=== PATIENT | male | born 1965 | race Caucasian/White ===

== ENCOUNTER 2021-07-11 08:05 | Outpatient (REF) | payer OTHER, SELFPAY ==
[2021-07-11 08:40] LABS: MANUAL DIFF FLAG NO
[2021-07-11 09:05] LABS: Appearance Urine CLEAR; Color Urine YELLOW; Glucose Urine UA NEG (NEG); Leukocyte Esterase Urine NEG (NEG); Nitrite Urine NEG (NEG); Specific Gravity - Urine 1.025 (1.005-1.025); Urine Blood NEG (NEG); Urine Ketones NEG (NEG); Urine Protein NEG (NEG-TRACE)
[2021-07-11 10:09] LABS: Basophils Absolute Auto 0.1 X10*3/uL (0.0-0.2); Basophils Percent Auto 0.8 % (0-2); Eosinophils Absolute Auto 0.5 X10*3/uL (0.0-0.4); Eosinophils Percent Auto 4.7 % (0-4); Hemoglobin 14.4 g/dl (14.0-18.0); Imm Gran Abs Auto 0.04 X10*3/uL (0.00-0.03); Imm Gran Pct Auto 0.4 % (0.0-0.4); Lymphocytes Percent Auto 19.3 % (20-40); Mean Corpuscular HGB Conc 31.3 g/dl (31.0-36.0); Mean Corpuscular Hemoglobin 27.9 pg (27.0-33.0); Mean Corpuscular Volume 89.1 fL (80.0-98.0); Mean Platelet Volume 11.6 fL (9.4-12.4); Monocytes Absolute Auto 1.3 X10*3/uL (0.1-1.2); Monocytes Percent Auto 12.7 % (2-11); Neutrophils Absolute Auto 6.3 x10*3/uL (2.0-8.3); Neutrophils Percent Auto 62.1 % (45-73); Platelet Count 246 X10*3/uL (160-400); Red Blood Count 5.16 X10*6/uL (4.60-5.80); White Blood Count 10.2 X10*3/uL (4.8-10.8)
[2021-07-11 10:23] LABS: Alanine Aminotransferase 20 U/L (0-40); Albumin Level 4.1 g/dL (3.5-5.0); Alkaline Phosphatase 65 U/L (39-117); Anion Gap 13 (12-20); Aspartate Amino Transferase 16 U/L (5-37); Bilirubin Total 0.5 mg/dL (0.0-1.0); Blood Urea Nitrogen 21 mg/dL (9-16); Calcium 10.1 mg/dL (8.4-10.2); Carbon Dioxide 31 mmol/L (22-29); Chloride 100 mmol/L (96-108); Cholesterol 224 mg/dL; Estimated Glomerular Filt Rate > 60; Glucose Fasting 94 mg/dL (60-99); HDL Cholesterol 43 mg/dL; LDL Cholesterol Calculated 164 mg/dl; Potassium 4.8 mmol/L (3.3-5.1); Sodium 139 mmol/L (135-145); Total Protein 6.9 g/dL (6.5-8.0); Triglycerides 88 mg/dL
[2021-07-11 10:44] LABS: Prostate Specific Antigen 2.45 ng/mL (<0.05-4.0)
== END 2021-07-11 08:06 | disposition home or self-care (01) ==
LOC: HO.LAB 08:05
PROVIDERS: PCP Internal Medicine; Visit Provider Internal Medicine
DX: E78.00 Pure hypercholesterolemia, unspecified (principal); K21.9 Gastro-esophageal reflux disease without esophagitis; M17.10 Unilateral primary osteoarthritis, unspecified knee; R35.1 Nocturia; Z12.5 Encounter for screening for malignant neoplasm of prostate
CPT/HCPCS: 36415; 80053; 80061; 81003; 84153; 85025

== ENCOUNTER → 2021-07-17 15:05 | Outpatient (BNVA) | payer OTHER, SELFPAY | PROVIDERS: PCP Internal Medicine; Referring Provider Internal Medicine; Visit Provider Surgery | DX: K43.9 Ventral hernia without obstruction or gangrene (principal); E66.01 Morbid (severe) obesity due to excess calories; Z68.43 Body mass index [BMI] 50.0-59.9, adult | CPT/HCPCS: 99202 ==

== ENCOUNTER 2021-09-14 08:40 | Outpatient (REF) | payer OTHER, SELFPAY ==
[2021-09-14 10:16] LABS: Cholesterol 211 mg/dL; HDL Cholesterol 40 mg/dL; LDL Cholesterol Calculated 153 mg/dl; Triglycerides 94 mg/dL
== END 2021-09-14 08:41 | disposition home or self-care (01) ==
LOC: HO.LAB 08:40
PROVIDERS: PCP Internal Medicine; Visit Provider Internal Medicine
DX: E78.00 Pure hypercholesterolemia, unspecified (principal)
CPT/HCPCS: 36415; 80061

== ENCOUNTER → 2021-10-04 12:49 | Outpatient (REF) | payer OTHER, SELFPAY | LOC: HO.SL 12:49 | PROVIDERS: PCP Internal Medicine; Visit Provider Internal Medicine | DX: G47.33 Obstructive sleep apnea (adult) (pediatric) (principal); R06.83 Snoring; R53.83 Other fatigue; E66.3 Overweight | CPT/HCPCS: 95806 ==

== ENCOUNTER → 2021-12-27 20:17 | Outpatient (REF) | payer OTHER, SELFPAY | LOC: HO.SL 20:17 | PROVIDERS: PCP Internal Medicine; Visit Provider Internal Medicine | DX: G47.33 Obstructive sleep apnea (adult) (pediatric) (principal); G47.61 Periodic limb movement disorder | CPT/HCPCS: 95811 ==

== ENCOUNTER → 2022-02-06 14:12 | Outpatient (BNVA) | payer OTHER, SELFPAY | PROVIDERS: PCP Internal Medicine; Visit Provider Internal Medicine | DX: G47.33 Obstructive sleep apnea (adult) (pediatric) (principal); K43.9 Ventral hernia without obstruction or gangrene; G47.34 Idiopathic sleep related nonobstructive alveolar hypoventilation; G47.61 Periodic limb movement disorder; E66.01 Morbid (severe) obesity due to excess calories; Z68.43 Body mass index [BMI] 50.0-59.9, adult | CPT/HCPCS: 99202 ==

== ENCOUNTER 2022-04-17 15:23 | Emergency (ER) | payer OTHER, SELFPAY ==
--- NOTE | ~2022-04-17 | CT_ITS ---
EXAMINATION: CT ABDOMEN AND PELVIS WITHOUT CONTRAST CLINICAL INFORMATION: Severe left flank pain COMPARISON: CT abdomen pelvis 06/06/2018 TECHNIQUE: Multidetector volumetric imaging was performed from the superior aspect of the liver through the pubic symphysis. Sagittal and coronal reformatted images were obtained on the technologist's workstation. This CT examination was performed using dose optimization techniques as appropriate, variously including the following: *Automated exposure control *Adjustment of mA and/or kV according to patient size (this includes techniques or standardized protocols for targeted exams where dose is matched to indication/reason for exam; i.e. extremities or head) *Use of iterative reconstruction technique DLP: 1974 mGy-cm FINDINGS: LUNG BASES: Visualized lung bases are clear. Mild LAD coronary artery vascular calcifications. LIVER, GALLBLADDER, AND BILIARY TREE: Normal hepatic size. No morphologic features of advanced cirrhosis. No liver lesion or biliary ductal dilation. The gallbladder is unremarkable with no evidence of radiopaque gallstones, gallbladder wall thickening, or obvious pericholecystic inflammatory changes. PANCREAS: Unremarkable. SPLEEN: Unremarkable. ADRENAL GLANDS: Unremarkable. KIDNEYS AND URETERS: Small 3 mm left proximal ureteral stone with minimal hydroureteronephrosis. There are several additional small nonobstructing left renal calculi, largest 3 mm in size. No right renal calculi. No renal lesions are hernia. Stranding. BLADDER: Unremarkable. GASTROINTESTINAL TRACT: No dilated bowel loops. No bowel wall thickening. Normal appendix. No ascites or free air. ABDOMINAL WALL: Fat-containing supraumbilical and umbilical abdominal wall hernias. LYMPH NODES: Borderline to mildly enlarged portacaval lymph node measuring 1.1 cm in short axis, nonspecific finding and unchanged. No other lymphadenopathy by size criteria. VASCULAR: Normal caliber abdominal aorta. Minimal scattered vascular calcifications. PELVIC VISCERA: Unremarkable. OSSEOUS STRUCTURES: No acute fracture or suspicious osseous lesion. Diffuse moderate multilevel spondylosis of the visualized thoracolumbar spine. CT/CT abdomen pelvis wo IV con IMPRESSION: 1. 3 mm left proximal ureteral stone with minimal left hydroureteronephrosis. 2. Several additional small nonobstructing left renal calculi.
[2022-04-17 15:39] VITALS: BP 142/82; PULSE 78; RESP 22; TEMP 36.1; O2SAT 96; BMI 55.9
--- NOTE | 2022-04-17 15:39 | ED.ABDPAIN ---
HPI - Abdominal Pain General Chief Complaint: Abdominal Pain <JAKY Reyna Last Filed: 04/17/22 15:41> Stated Complaint: Kidney Stone <JAKY Reyna Last Filed: 04/17/22 15:41> Time Seen by Provider: 04/17/22 17:31 <JAKY Reyna Last Filed: 04/17/22 15:41> Source: patient <JAKY French Last Filed: 04/18/22 08:37> Mode of arrival: ambulatory <JAKY French Last Filed: 04/18/22 08:37> Limitations: no limitations <JAKY French Last Filed: 04/18/22 08:37> History of Present Illness HPI narrative: Patient is a 56 year old assigned male at with a history of kidney stones presenting to the emergency department today with left sided flank pain. Patient states that starting a few hours ago he began to have left sided flank pain. Patient denies any dizziness, lightheadedness, nausea, vomiting, fever, chills, blurry vision, double vision, loss of vision, chest pain, difficulty breathing, shortness of breath, back pain, night sweats, pain with urination, increased urinary frequency, increased urinary urgency, blood in his urine or stool, syncope or a near syncopal episode, recent trauma or falls, bowel incontinence, bladder incontinence, bowel retention, bladder retention, or any other complaints at this time. <JAKY French - Last Filed: 04/18/22 08:37> MD elicited complaint: flank pain <JAKY French Last Filed: 04/18/22 08:37> Pertinent past history: kidney stones <JAKY French Last Filed: 04/18/22 08:37> Onset (ago): hour(s) <JAKY French Last Filed: 04/18/22 08:37> Pain Consistency: constant <JAKY French Last Filed: 04/18/22 08:37> Location: L flank <JAKY French Last Filed: 04/18/22 08:37> Severity: mild <JAKY French Last Filed: 04/18/22 08:37> Pain scale (0-10): 4 <JAKY French Last Filed: 04/18/22 08:37> Quality: dull <JAKY French Last Filed: 04/18/22 08:37> Radiation: none <JAKY French Last Filed: 04/18/22 08:37> Exacerbating factors: nothing <JAKY French Last Filed: 04/18/22 08:37> Relieving factors: nothing <JAKY French Last Filed: 04/18/22 08:37> Associated symptoms: denies other symptoms <JAKY French Last Filed: 04/18/22 08:37> Related Data Home Medications: Home Medications Medication Instructions Recorded Confirmed sertraline 50 mg tablet 75 mg PO DAILY 07/17/21 10/25/21 trazodone 50 mg tablet 75 - 100 mg PO BEDTIME 07/17/21 10/25/21 losartan 25 mg tablet 25 mg PO DAILY 02/06/22 simvastatin 10 mg tablet 10 mg PO DAILY 02/06/22 Previous Rx's Medication Instructions Recorded prednisone 20 mg tablet 20 mg PO DAILY 7 days #7 tabs 04/17/22 tamsulosin 0.4 mg capsule (Flomax) 0.4 mg PO DAILY 7 days #7 caps 04/17/22 <JAKY Reyna Last Filed: 04/17/22 15:41> Allergies/Adverse Reactions: Allergies Allergy/AdvReac Type Severity Reaction Status Date / Time No Known Allergies Allergy Verified 02/06/22 14:52 [No Known Allergies*] <JAKY Reyna Last Filed: 04/17/22 15:41> Review of Systems Constitutional: Reports no additional constitutional complaints, Denies chills, Denies fever(s) and Denies night sweats <JAKY French Last Filed: 04/18/22 08:37> Eyes: Reports no additional eye complaints, Denies blurry vision, Denies change in vision, Denies diplopia, Denies eye discharge, Denies loss of vision and Denies eye pain <JAKY French Last Filed: 04/18/22 08:37> Denies dizziness <JAKY French Last Filed: 04/18/22 08:37> Cardiovascular: Reports no additional cardiovascular complaints, Denies chest pain, Denies lightheadedness, Denies Loss of Consciousness and Denies dyspnea <JAKY French - Last Filed: 04/18/22 08:37> Respiratory: Reports no additional respiratory complaints and Denies dyspnea <JAKY French Last Filed: 04/18/22 08:37> Gastrointestinal: Reports no additional gastrointestinal complaints, Denies abdominal pain, Denies melena, Denies hematochezia, Denies change in bowel habits and Denies change in stool character <JAKY French - Last Filed: 04/18/22 08:37> Genitourinary: Reports no additional male genitourinary complaints, Denies hematuria, Denies oliguria, Denies difficulty urinating, Denies dysuria, Reports flank pain, Denies urinary frequency, Denies urinary hesitancy, Denies urinary incontinence and Denies urinary urgency <JAKY French Last Filed: 04/18/22 08:37> Musculoskeletal: Reports no additional musculoskeletal complaints, Denies numbness and Denies tingling <JAKY French Last Filed: 04/18/22 08:37> Denies dizziness, Denies loss of vision, Denies numbness and Denies tingling <JAKY French Last Filed: 04/18/22 08:37> Psychiatric: Reports no additional psychiatric complaints <JAKY French Last Filed: 04/18/22 08:37> Endocrine: Reports no additional endocrine complaints <JAKY French Last Filed: 04/18/22 08:37> Hematologic/Lymphatic: Reports no additional hematologic/lymphatic complaints <JAKY French Last Filed: 04/18/22 08:37> Allergic/Immunologic: Reports no additional allergic/immunologic complaints <JAKY French Last Filed: 04/18/22 08:37> PMFSH Past Medical History Attestation statement: The following information was validated with the patient. <JAKY French Last Filed: 04/18/22 08:37> Source: old records reviewed and nursing notes reviewed <JAYK French Last Filed: 04/18/22 08:37> Medical History: Medical History Arthritis of knee Depression Elevated cholesterol History of kidney stones Morbid obesity Morbid obesity with BMI of 50.0-59.9, adult Nocturnal hypoxemia STACY (obstructive sleep apnea) STACY (obstructive sleep apnea) Periodic limb movements of sleep PTSD (post-traumatic stress disorder) Seasonal allergic rhinitis Snores Supraumbilical hernia <JAKY Reyna - Last Filed: 04/17/22 15:41> Surgical History: Surgical History History of cystoscopy History of lithotripsy History of umbilical hernia repair <JAKY Reyna - Last Filed: 04/17/22 15:41> Family History Family History: Family History Mother Cancer of kidney <JAKY Reyna - Last Filed: 04/17/22 15:41> Social History Social History: Social History Patient Tobacco Use Status: Former Tobacco user Advance Directives: No Advance Directives Information Provided: Yes <JAKY Ryena - Last Filed: 04/17/22 15:41> Physical Exam ED Vital Signs: Vital Signs - 24 hr 04/17/22 15:39 Temperature 96.9 F Pulse Rate 78 Respiratory Rate 22 H Blood Pressure 142/82 H Pulse Oximetry 96 Oxygen Delivery Method Room Air BMI result Body Mass Index 55.9 <JAKY Reyna - Last Filed: 04/17/22 15:41> Vital Signs - 24 hr 04/17/22 15:39 Temperature 96.9 F Pulse Rate 78 Respiratory Rate 22 H Blood Pressure 142/82 H Pulse Oximetry 96 Oxygen Delivery Method Room Air BMI result Body Mass Index 55.9 <JAKY French - Last Filed: 04/18/22 08:37> Const General: cooperative, no acute distress, alert and awake <JAKY French - Last Filed: 04/18/22 08:37> Nutritional Appearance: well nourished <JAKY French - Last Filed: 04/18/22 08:37> Orientation/consciousness: patient oriented x3 <Tatum Maharajlance [place] - Last Filed: 04/18/22 08:37> Limitations: no limitations <Tatum MaharajJAKY lucas - Last Filed: 04/18/22 08:37> HENMT Head: Yes normal to inspection and Yes atraumatic <Tatum MaharajJAKY lucas - Last Filed: 04/18/22 08:37> Ears: hearing grossly normal bilaterally and external ears normal <Tatum Maharajlance [place] - Last Filed: 04/18/22 08:37> General nose exam: Normal external nose present, no nasal discharge noted and no epistaxis <Tatumac Maharajlance DE - Last Filed: 04/18/22 08:37> Face and sinus: Yes normal facial exam, No abrasion and No laceration <Tatum Maharajlance [place] - Last Filed: 04/18/22 08:37> Mouth: Normal oral and palatal mucosa present, no drooling and no muffled voice <JAKY French - Last Filed: 04/18/22 08:37> Eyes General: appearance normal, both eyes and all related structures <Tatum Maharajlance DE - Last Filed: 04/18/22 08:37> Periorbital: periorbital findings normal <Tatum MaharajJAKY lucas - Last Filed: 04/18/22 08:37> Eyelids: Yes eyelids normal <Tatum aMharajlance DE - Last Filed: 04/18/22 08:37> Conjunctivae: conjunctivae normal <Tatumac MaharajJAKY lucas - Last Filed: 04/18/22 08:37> Pupils: Equal, round and reactive pupils present <Tatum Maharajlance DE - Last Filed: 04/18/22 08:37> EOM: EOMs intact bilaterally <Tatumca MaharajJAKY lucas - Last Filed: 04/18/22 08:37> Neck Neck: Yes normal visual inspection, Yes full ROM and Yes no lymphadenopathy <Tatum JAKY Miguel - Last Filed: 04/18/22 08:37> Chest Chest palpation & inspection: normal inspection of the chest <JAKY French - Last Filed: 04/18/22 08:37> Resp Effort & Inspection: normal respiratory effort and able to speak in complete sentences <Tatum Miguel PA - Last Filed: 04/18/22 08:37> Auscultation: clear to auscultation bilaterally <Tatum Miguel DE - Last Filed: 04/18/22 08:37> Cardio Rate: regular rate <Tatum Miguel DE - Last Filed: 04/18/22 08:37> Rhythm: regular rhythm <Tatum Miguel DE - Last Filed: 04/18/22 08:37> GI Inspection: Yes normal to inspection <Tatum Miguel DE - Last Filed: 04/18/22 08:37> Palpation (GI): Soft to palpation, not firm, nontender, no guarding and not rigid <Tatum Miguel DE - Last Filed: 04/18/22 08:37> General: Yes no CVA tenderness <Tatum Miguel DE - Last Filed: 04/18/22 08:37> Back/Spine/Pelvis Back: no CVA tenderness <Tatum Miguel DE - Last Filed: 04/18/22 08:37> Neuro General: patient oriented x3 and moves all extremities <Tatum Migeul DE - Last Filed: 04/18/22 08:37> Cranial nerves: Yes Equal, round and reactive pupils present <Tatum Miguel DE - Last Filed: 04/18/22 08:37> Cognition (Neuro): normal cognition <Tatum Miguel DE - Last Filed: 04/18/22 08:37> Motor exam (neuro): 5/5 motor strength present throughout <Tatum Miguel DE - Last Filed: 04/18/22 08:37> Sensory Exam: Normal double simultaneous stimulation for sensation <Tatum Miguel DE - Last Filed: 04/18/22 08:37> Coordination: [id number] test normal <Tatum Miguel PA - Last Filed: 04/18/22 08:37> Extrem General: Yes normal to inspection, Yes full ROM and Yes capillary refill normal <Tatum Miguel DE - Last Filed: 04/18/22 08:37> Psych Appearance: grossly normal <Tatum MiguelJAKY - Last Filed: 04/18/22 08:37> Mental Status: mental status grossly normal <Tatum Miguel PA - Last Filed: 04/18/22 08:37> Affect: normal affect <JAKY French Last Filed: 04/18/22 08:37> Attitude: cooperative <JAKY French Last Filed: 04/18/22 08:37> Thought process: Normal thought process present <JAKY French Last Filed: 04/18/22 08:37> Thought content: Normal thought content present <JAKY French Last Filed: 04/18/22 08:37> Insight: Good insight present (Psych) <JAKY French Last Filed: 04/18/22 08:37> Course Course Course Narrative: RME - 56 y/o male with history of recurrent kidney stones requiring multiple procedures in the past who presents to the ER for evaluation of acute onset of severe left sided flank pain x1 hour along with nausea. Labs, CT scan ordered along with PO motrin and zofran for now. <JAKY Reyna - Last Filed: 04/17/22 15:41> Medical Decision Making Medical Decision Making MDM Narrative: Patient is a 56 year old assigned male at with a history of kidney stones presenting to the emergency department today with left flank pain. Patient's physical exam was unremarkable. Patient's blood work showed a slightly elevated WBC count of 12.8 which I attribute to a stress reaction. Patient's abdominal/pelvis CT showed a 3mm left proximal ureteral stone with minimal left hydroureteronephrosis. I explained my physical exam findings as well as all test results to the patient. I answered all questions asked by the patient. Patient received IM Toradol which he stated helped his symptoms significantly. I stressed the importance of the patient taking his medication as prescribed. I stressed the importance of the patient following up with his primary care provider and a urologist. I stressed the importance of the patient returning to the emergency department immediately if his symptoms were to worsen or if he were to develop any dizziness, shortness of breath, difficulty breathing, chest pain, blurry vision, loss of vision, nausea, vomiting, abdominal pain, fever, chills, back pain, or any other complaints. Patient verbalized agreement and understanding with this treatment plan and discharge. <JAKY French Last Filed: 04/18/22 08:37> Differential Diagnosis Differential Diagnoses: The differential diagnosis associated with the presentation includes <JAKY French - Last Filed: 04/18/22 08:37> kidney stones, flank pain <JAKY French - Last Filed: 04/18/22 08:37> Lab Data MDM Lab Attestation statement: I reviewed the patient's lab results. <JAKY French - Last Filed: 04/18/22 08:37> Result Diagrams: 04/17/22 15:45 04/17/22 15:45 <JAKY Reyna - Last Filed: 04/17/22 15:41> Labs: Lab Results 04/17/22 04/17/22 04/17/22 Range/Units 15:45 15:45 15:45 WBC 12.8 H (4.8-10.8) X10*3/uL RBC 5.10 (4.60-5.80) X10*6/uL Hgb 14.8 (14.0-18.0) g/dl Hct 45.0 (42.0-52.0) % MCV 88.2 (80.0-98.0) fL MCH 29.0 (27.0-33.0) pg MCHC 32.9 (31.0-36.0) g/dl RDW 13.8 (11.0-16.0) % Plt Count 277 (160-400) X10*3/uL MPV 10.3 (9.4-12.4) fL Immature Gran % (Auto) 0.4 (0.0-0.4) % Neut % (Auto) 74.2 H (45-73) % Lymph % (Auto) 14.2 L (20-40) % [place] % (Auto) 9.1 (2-11) % Eos % (Auto) 1.4 (0-4) % Baso % (Auto) 0.7 (0-2) % Lymph # (Auto) 1.8 (1.2-4.9) X10*3/uL [place] # (Auto) 1.2 (0.1-1.2) X10*3/uL Eos # (Auto) 0.2 (0.0-0.4) X10*3/uL Baso # (Auto) 0.1 (0.0-0.2) X10*3/uL Abs Immat Gran (auto) 0.05 H (0.00-0.03) X10*3/uL Absolute Neuts (auto) 9.5 H (2.0-8.3) x10*3/uL Absolute Nucleated RBC 0.000 (0.0-0.012) X10*3/uL Nucleated RBC % (auto) 0.0 (0.0-0.2) /100WBC Sodium 138 (135-145) mmol/L Potassium 3.8 D (3.3-5.1) mmol/L Chloride 104 (96-108) mmol/L Carbon Dioxide 23 (22-29) mmol/L Anion Gap 15 (12-20) BUN 17 H (9-16) mg/dL Creatinine 1.31 (0.5-1.4) mg/dL Estim Creat Clear Calc 104.4 Estimated GFR 57 Random Glucose 129 H (60-115) mg/dL Calcium 9.4 D (8.4-10.2) mg/dL Magnesium 1.9 (1.6-2.6) mg/dL Total Bilirubin 0.7 (0.0-1.0) mg/dL Direct Bilirubin 0.3 (0.0-0.5) mg/dL AST 19 (5-37) U/L ALT 19 (0-40) U/L Alkaline Phosphatase 63 (39-117) U/L Total Protein 7.2 (6.5-8.0) g/dL Albumin 4.4 (3.5-5.0) g/dL COVID-19 (SHARAN) Negative (Negative) COVID-19 Clin Com See Note <JAKY Reyna - Last Filed: 04/17/22 15:41> Lab Results 04/17/22 04/17/22 04/17/22 Range/Units 15:45 15:45 15:45 WBC 12.8 H (4.8-10.8) X10*3/uL RBC 5.10 (4.60-5.80) X10*6/uL Hgb 14.8 (14.0-18.0) g/dl Hct 45.0 (42.0-52.0) % MCV 88.2 (80.0-98.0) fL MCH 29.0 (27.0-33.0) pg MCHC 32.9 (31.0-36.0) g/dl RDW 13.8 (11.0-16.0) % Plt Count 277 (160-400) X10*3/uL MPV 10.3 (9.4-12.4) fL Immature Gran % (Auto) 0.4 (0.0-0.4) % Neut % (Auto) 74.2 H (45-73) % Lymph % (Auto) 14.2 L (20-40) % [place] % (Auto) 9.1 (2-11) % Eos % (Auto) 1.4 (0-4) % Baso % (Auto) 0.7 (0-2) % Lymph # (Auto) 1.8 (1.2-4.9) X10*3/uL [place] # (Auto) 1.2 (0.1-1.2) X10*3/uL Eos # (Auto) 0.2 (0.0-0.4) X10*3/uL Baso # (Auto) 0.1 (0.0-0.2) X10*3/uL Abs Immat Gran (auto) 0.05 H (0.00-0.03) X10*3/uL Absolute Neuts (auto) 9.5 H (2.0-8.3) x10*3/uL Absolute Nucleated RBC 0.000 (0.0-0.012) X10*3/uL Nucleated RBC % (auto) 0.0 (0.0-0.2) /100WBC Sodium 138 (135-145) mmol/L Potassium 3.8 D (3.3-5.1) mmol/L Chloride 104 (96-108) mmol/L Carbon Dioxide 23 (22-29) mmol/L Anion Gap 15 (12-20) BUN 17 H (9-16) mg/dL Creatinine 1.31 (0.5-1.4) mg/dL Estim Creat Clear Calc 104.4 Estimated GFR 57 Random Glucose 129 H (60-115) mg/dL Calcium 9.4 D (8.4-10.2) mg/dL Magnesium 1.9 (1.6-2.6) mg/dL Total Bilirubin 0.7 (0.0-1.0) mg/dL Direct Bilirubin 0.3 (0.0-0.5) mg/dL AST 19 (5-37) U/L ALT 19 (0-40) U/L Alkaline Phosphatase 63 (39-117) U/L Total Protein 7.2 (6.5-8.0) g/dL Albumin 4.4 (3.5-5.0) g/dL COVID-19 (SHARAN) Negative (Negative) COVID-19 Clin Com See Note <JAKY French - Last Filed: 04/18/22 08:37> Radiology Impression Discussion of test interpretation with radiology: I have reviewed the radiologist's reading. <JAKY French - Last Filed: 04/18/22 08:37> Radiologist Impression: My interpretation is in agreement with the radiologist's impression of this imaging study. EXAMINATION: CT ABDOMEN AND PELVIS WITHOUT CONTRAST? CLINICAL INFORMATION: Severe left flank pain? COMPARISON: CT abdomen pelvis 06/06/2018? TECHNIQUE: Multidetector volumetric imaging was performed from the superior aspect of the liver through the pubic symphysis. Sagittal and coronal reformatted images were obtained on the technologist's workstation.? This CT examination was performed using dose optimization techniques as appropriate, variously including the following: *Automated exposure control *Adjustment of mA and/or kV according to patient size (this includes techniques or standardized protocols for targeted exams where dose is matched to indication/reason for exam; i.e. extremities or head) *Use of iterative reconstruction technique DLP: 1974 mGy-cm FINDINGS: LUNG BASES: Visualized lung bases are clear. Mild LAD coronary artery vascular calcifications.? LIVER, GALLBLADDER, AND BILIARY TREE: Normal hepatic size. No morphologic features of advanced cirrhosis. No liver lesion or biliary ductal dilation. The gallbladder is unremarkable with no evidence of radiopaque gallstones, gallbladder wall thickening, or obvious pericholecystic inflammatory changes.? PANCREAS: Unremarkable.? SPLEEN: Unremarkable.? ADRENAL GLANDS: Unremarkable.? KIDNEYS AND URETERS: Small 3 mm left proximal ureteral stone with minimal hydroureteronephrosis. There are several additional small nonobstructing left renal calculi, largest 3 mm in size. No right renal calculi. No renal lesions are hernia. Stranding. BLADDER: Unremarkable.? GASTROINTESTINAL TRACT: No dilated bowel loops. No bowel wall thickening. Normal appendix. No ascites or free air. ABDOMINAL WALL: Fat-containing supraumbilical and umbilical abdominal wall hernias. ? LYMPH NODES: Borderline to mildly enlarged portacaval lymph node measuring 1.1 cm in short axis, nonspecific finding and unchanged. No other lymphadenopathy by size criteria. VASCULAR: Normal caliber abdominal aorta. Minimal scattered vascular calcifications. PELVIC VISCERA: Unremarkable.? OSSEOUS STRUCTURES: No acute fracture or suspicious osseous lesion. Diffuse moderate multilevel spondylosis of the visualized thoracolumbar spine. CT/CT abdomen pelvis wo IV con IMPRESSION: 1.? 3 mm left proximal ureteral stone with minimal left hydroureteronephrosis. 2.? Several additional small nonobstructing left renal calculi. Dictated By: Paul Barnhart Signed By: Electronically signed by Paul?Obey 04/17/22 [id number] <JAKY French - Last Filed: 04/18/22 08:37> Medications Administered Discontinued Medications Generic Name Dose Route Start Last Admin Trade Name Gulshanq PRN Reason Stop Dose Admin Ibuprofen 600 mg 04/17/22 15:39 04/17/22 17:48 Ibuprofen 600 Mg Tablet PO 04/17/22 15:40 Not Given ONCE ONE Ketorolac Tromethamine 15 mg 04/17/22 17:33 04/17/22 17:54 Ketorolac Tromethamine 15 Mg/Ml Vial IM 04/17/22 17:34 15 mg ONCE ONE Administration Ondansetron HCl 4 mg 04/17/22 15:39 04/17/22 17:48 Ondansetron Odt 4 Mg Tab.Rapdis TRANSLINGU 04/17/22 15:40 Not Given ONCE ONE Ondansetron HCl 4 mg 04/17/22 17:33 04/17/22 17:54 Ondansetron Odt 4 Mg Tab.Rapdis TRANSLINGU 04/17/22 17:34 4 mg ONCE ONE Administration <JAKY Reyna - Last Filed: 04/17/22 15:41> Medications Administered Discontinued Medications Generic Name Dose Route Start Last Admin Trade Name Laila PRN Reason Stop Dose Admin Ibuprofen 600 mg 04/17/22 15:39 04/17/22 17:48 Ibuprofen 600 Mg Tablet PO 04/17/22 15:40 Not Given ONCE ONE Ketorolac Tromethamine 15 mg 04/17/22 17:33 04/17/22 17:54 Ketorolac Tromethamine 15 Mg/Ml Vial IM 04/17/22 17:34 15 mg ONCE ONE Administration Ondansetron HCl 4 mg 04/17/22 15:39 04/17/22 17:48 Ondansetron Odt 4 Mg Tab.Sofiyadis TRANSLINGU 04/17/22 15:40 Not Given ONCE ONE Ondansetron HCl 4 mg 04/17/22 17:33 04/17/22 17:54 Ondansetron Odt 4 Mg Tab.Rapdis TRANSLINGU 04/17/22 17:34 4 mg ONCE ONE Administration <JAKY French - Last Filed: 04/18/22 08:37> Discharge Plan Discharge Clinical Impression: Calculus, renal <JAKY Reyna - Last Filed: 04/17/22 15:41> Patient Disposition: Home, Self-Care <JAKY Reyna - Last Filed: 04/17/22 15:41> Instructions: Kidney Stones (ED) <JAKY Reyna Last Filed: 04/17/22 15:41> Additional Instructions: Follow up with your primary care provider and a urologist. Return to the emergency department immediately if your symptoms worsen or if you develop any dizziness, shortness of breath, difficulty breathing, chest pain, blurry vision, loss of vision, nausea, vomiting, abdominal pain, fever, chills, back pain, or any other complaints. <JAKY Reyna - Last Filed: 04/17/22 15:41> Prescriptions: New tamsulosin [Flomax] 0.4 mg capsule 0.4 mg PO DAILY 7 Days Qty: 7 0RF prednisone 20 mg tablet 20 mg PO DAILY 7 Days Qty: 7 0RF No Action sertraline 50 mg tablet 75 mg PO DAILY trazodone 50 mg tablet 75 - 100 mg PO BEDTIME losartan 25 mg tablet 25 mg PO DAILY simvastatin 10 mg tablet 10 mg PO DAILY <JAKY Reyna - Last Filed: 04/17/22 15:41> Referrals: [facility] [Provider Group] (Call to establish and follow up with a urologist. ) Jimenez Savage MD [Primary Care Provider] - <JAKY Reyna - Last Filed: 04/17/22 15:41> Stand Alone Forms: Work/School Release <JAKY Reyna - Last Filed: 04/17/22 15:41> Interventions: ED Discharge Assessment Last Done: 04/17/22 18:50 <JAKY Reyna - Last Filed: 04/17/22 15:41> Discharge Date/Time: 04/17/22 18:50 <JAKY Reyna - Last Filed: 04/17/22 15:41> Print Language: Latvian <JAKY Reyna - Last Filed: 04/17/22 15:41>
[2022-04-17 15:50] LABS: MANUAL DIFF FLAG NO
[2022-04-17 15:55] LABS: Basophils Absolute Auto 0.1 X10*3/uL (0.0-0.2); Basophils Percent Auto 0.7 % (0-2); Eosinophils Absolute Auto 0.2 X10*3/uL (0.0-0.4); Eosinophils Percent Auto 1.4 % (0-4); Hemoglobin 14.8 g/dl (14.0-18.0); Imm Gran Abs Auto 0.05 X10*3/uL (0.00-0.03); Imm Gran Pct Auto 0.4 % (0.0-0.4); Lymphocytes Absolute Auto 1.8 X10*3/uL (1.2-4.9); Lymphocytes Percent Auto 14.2 % (20-40); Mean Corpuscular HGB Conc 32.9 g/dl (31.0-36.0); Mean Corpuscular Volume 88.2 fL (80.0-98.0); Mean Platelet Volume 10.3 fL (9.4-12.4); Monocytes Absolute Auto 1.2 X10*3/uL (0.1-1.2); Monocytes Percent Auto 9.1 % (2-11); Neutrophils Absolute Auto 9.5 x10*3/uL (2.0-8.3); Neutrophils Percent Auto 74.2 % (45-73); Platelet Count 277 X10*3/uL (160-400); Red Cell Distribution Width 13.8 % (11.0-16.0); White Blood Count 12.8 X10*3/uL (4.8-10.8)
[2022-04-17 16:11] LABS: Alanine Aminotransferase 19 U/L (0-40); Albumin Level 4.4 g/dL (3.5-5.0); Alkaline Phosphatase 63 U/L (39-117); Anion Gap 15 (12-20); Aspartate Amino Transferase 19 U/L (5-37); Bilirubin Direct 0.3 mg/dL (0.0-0.5); Bilirubin Total 0.7 mg/dL (0.0-1.0); Blood Urea Nitrogen 17 mg/dL (9-16); Calcium 9.4 mg/dL (8.4-10.2); Carbon Dioxide 23 mmol/L (22-29); Chloride 104 mmol/L (96-108); Creatinine Clr Calc Pharmacy 104.4; Estimated Glomerular Filt Rate 57; Glucose Random 129 mg/dL (60-115); Magnesium 1.9 mg/dL (1.6-2.6); Potassium 3.8 mmol/L (3.3-5.1); Sodium 138 mmol/L (135-145); Total Protein 7.2 g/dL (6.5-8.0)
[2022-04-17 16:13] LABS: COVID-19 Test Negative (Negative); IDNOW Serial# 16C4AD1C
[2022-04-17] MEDS: Ondansetron ODT 4 MG TAB.RAPDIS TRANSLINGU (17:54)
[2022-04-17] MEDS: Ketorolac Tromethamine 15 MG/ML VIAL IM (17:54)
== END 2022-04-17 18:50 | disposition home or self-care (01) ==
PROVIDERS: Physician Assistant; Emergency Provider Emergency Medicine Emergency Medical Services; PCP Internal Medicine
DX: N13.2 Hydronephrosis with renal and ureteral calculous obstruction (principal); Z20.822 Contact with and (suspected) exposure to COVID-19; E78.5 Hyperlipidemia, unspecified; E66.9 Obesity, unspecified; Z68.43 Body mass index [BMI] 50.0-59.9, adult; Z87.442 Personal history of urinary calculi; Z79.899 Other long term (current) drug therapy; Z79.02 Long term (current) use of antithrombotics/antiplatelets
CPT/HCPCS: 74176; 80048; 80076; 83735; 85025; 87635; 96372; 99283; 99284; J1885

== ENCOUNTER → 2022-05-15 13:37 | Outpatient (BNVA) | payer OTHER, SELFPAY | PROVIDERS: PCP Internal Medicine; Visit Provider Internal Medicine | DX: E66.01 Morbid (severe) obesity due to excess calories (principal); Z68.43 Body mass index [BMI] 50.0-59.9, adult; G47.33 Obstructive sleep apnea (adult) (pediatric); G47.61 Periodic limb movement disorder | CPT/HCPCS: 99212 ==

== ENCOUNTER → 2022-05-17 13:38 | Outpatient (BNVA) | payer OTHER, SELFPAY | PROVIDERS: PCP Internal Medicine; Visit Provider Nurse Practitioner Family | DX: N20.0 Calculus of kidney (principal) | CPT/HCPCS: 99202 ==

== ENCOUNTER 2022-06-14 12:19 | Outpatient (REF) | payer OTHER, SELFPAY ==
--- NOTE | ~2022-06-14 | US_ITS ---
EXAMINATION: US RETROPERITONEAL LIMITED (RENAL ONLY) CLINICAL INFORMATION: Calculus of kidney. COMPARISON: CT abdomen and pelvis without contrast 04/17/2022. Ultrasound retroperitoneal limited (renal only) 05/22/2018 and 09/25/2017. X-ray abdomen KUB 10/05/2015 and 09/28/2015. TECHNIQUE: Real-time imaging of the kidneys. Technically very limited study secondary to bowel gas and body habitus. FINDINGS: RIGHT KIDNEY: 11.0 x 6.5 x 5.9 cm (SAG x AP x TRV). The kidney is normal in size, contour, and echogenicity. Renal cortical thickness is normal. No calculi or focal parenchymal lesions. No hydronephrosis. LEFT KIDNEY: 11.5 x 5.4 x 6.5 cm (SAG x AP x TRV). The kidney is normal in size, contour, and echogenicity. Renal cortical thickness is normal. No calculi or focal parenchymal lesions. No hydronephrosis. US/US renal BI IMPRESSION: -Today's examination is significantly limited secondary to patient body habitus and overlying bowel gas. -No renal calculi or hydronephrosis of either kidney.
== END 2022-06-14 12:20 | disposition home or self-care (01) ==
LOC: HO.US 12:19
PROVIDERS: PCP Internal Medicine; Visit Provider Nurse Practitioner Family
DX: N20.0 Calculus of kidney (principal)
CPT/HCPCS: 76775

== ENCOUNTER → 2022-07-17 13:22 | Outpatient (BNVA) | payer OTHER, SELFPAY | PROVIDERS: PCP Internal Medicine; Visit Provider Nurse Practitioner Family | DX: N20.0 Calculus of kidney (principal) | CPT/HCPCS: 99212 ==

== ENCOUNTER 2022-08-22 07:59 | Outpatient (REF) | payer OTHER, SELFPAY ==
[2022-08-22 08:13] LABS: MANUAL DIFF FLAG NO
[2022-08-22 08:35] LABS: Basophils Absolute Auto 0.1 X10*3/uL (0.0-0.2); Basophils Percent Auto 0.8 % (0-2); Eosinophils Absolute Auto 0.4 X10*3/uL (0.0-0.4); Eosinophils Percent Auto 4.7 % (0-4); Hematocrit 41.5 % (42.0-52.0); Hemoglobin 13.5 g/dl (14.0-18.0); Imm Gran Abs Auto 0.03 X10*3/uL (0.00-0.03); Imm Gran Pct Auto 0.3 % (0.0-0.4); Lymphocytes Absolute Auto 2.1 X10*3/uL (1.2-4.9); Lymphocytes Percent Auto 22.6 % (20-40); Mean Corpuscular HGB Conc 32.5 g/dl (31.0-36.0); Mean Corpuscular Hemoglobin 29.2 pg (27.0-33.0); Mean Corpuscular Volume 89.8 fL (80.0-98.0); Monocytes Percent Auto 10.1 % (2-11); Neutrophils Absolute Auto 5.8 x10*3/uL (2.0-8.3); Neutrophils Percent Auto 61.5 % (45-73); Platelet Count 217 X10*3/uL (160-400); Red Blood Count 4.62 X10*6/uL (4.60-5.80); Red Cell Distribution Width 14.6 % (11.0-16.0); White Blood Count 9.4 X10*3/uL (4.8-10.8)
[2022-08-22 09:18] LABS: Alanine Aminotransferase 36 U/L (0-40); Alkaline Phosphatase 51 U/L (39-117); Anion Gap 11 (12-20); Aspartate Amino Transferase 29 U/L (5-37); Bilirubin Total 0.7 mg/dL (0.0-1.0); Blood Urea Nitrogen 18 mg/dL (9-16); Calcium 9.5 mg/dL (8.4-10.2); Carbon Dioxide 29 mmol/L (22-29); Chloride 105 mmol/L (96-108); Cholesterol 151 mg/dL; Estimated Glomerular Filt Rate > 60; Glucose Fasting 98 mg/dL (60-99); HDL Cholesterol 41 mg/dL; LDL Cholesterol Calculated 87 mg/dl; Potassium 4.4 mmol/L (3.3-5.1); Sodium 141 mmol/L (135-145); Total Protein 6.6 g/dL (6.5-8.0); Triglycerides 119 mg/dL
[2022-08-22 09:25] LABS: Appearance Urine Clear; Color Urine Yellow; Glucose Urine UA Negative (Negative); Leukocyte Esterase Urine Negative (Negative); Nitrite Urine Negative (Negative); Urine Blood Negative (Negative); Urine Ketones Negative (Negative); Urine Protein Negative (Neg-Trace)
== END 2022-08-22 08:00 | disposition home or self-care (01) ==
LOC: HO.LAB 07:59
PROVIDERS: Internal Medicine; PCP Family Medicine; Visit Provider Family Medicine
DX: Z12.5 Encounter for screening for malignant neoplasm of prostate (principal); I10 Essential (primary) hypertension; E78.00 Pure hypercholesterolemia, unspecified; G47.33 Obstructive sleep apnea (adult) (pediatric); R35.1 Nocturia
CPT/HCPCS: 36415; 80053; 80061; 81003; 84153; 85025

== ENCOUNTER → 2022-09-11 13:35 | Outpatient (BNVA) | payer OTHER, SELFPAY | PROVIDERS: PCP Internal Medicine; Visit Provider Internal Medicine | DX: G47.33 Obstructive sleep apnea (adult) (pediatric) (principal); G47.34 Idiopathic sleep related nonobstructive alveolar hypoventilation; G47.61 Periodic limb movement disorder; E66.01 Morbid (severe) obesity due to excess calories; Z68.43 Body mass index [BMI] 50.0-59.9, adult | CPT/HCPCS: 99212 ==

== ENCOUNTER 2023-01-01 12:49 | Outpatient (REF) | payer OTHER, SELFPAY ==
--- NOTE | ~2023-01-01 | US_ITS ---
EXAMINATION: US RETROPERITONEAL LIMITED (RENAL ONLY) CLINICAL INFORMATION: Calculus of kidney. COMPARISON: Ultrasound retroperitoneal limited (renal only) 06/14/2022. CT abdomen and pelvis without contrast 04/17/2022. TECHNIQUE: Real-time imaging of the kidneys. Technically difficult study/limited views secondary to body habitus. FINDINGS: RIGHT KIDNEY: 12.0 x 5.6 x 5.4 cm (SAG x AP x TRV). The kidney is normal in size, contour, and echogenicity. Renal cortical thickness is normal. No calculi or focal parenchymal lesions. No hydronephrosis. LEFT KIDNEY: 13.3 x 5.2 x 6.0 cm (SAG x AP x TRV). The kidney is normal in size, contour, and echogenicity. Renal cortical thickness is normal. No calculi or focal parenchymal lesions. No hydronephrosis. US/US renal BI IMPRESSION: Exam is limited by body habitus. No nephrolithiasis or hydronephrosis demonstrated.
== END 2023-01-01 12:50 | disposition home or self-care (01) ==
LOC: HO.US 12:49
PROVIDERS: PCP Internal Medicine; Visit Provider Nurse Practitioner Family
DX: N20.0 Calculus of kidney (principal)
CPT/HCPCS: 76775

== ENCOUNTER 2023-01-15 13:54 | Outpatient (AMB) | payer OTHER, SELFPAY ==
[2023-01-15 14:12] VITALS: BP 130/72; PULSE 73; O2SAT 97; BMI 56.6
--- NOTE | 2023-01-15 14:12 | MHC.OFFVIS ---
Intake Vital Signs 01/15/23 14:12 Height 5 ft 10 in Weight 394 lb 10.039 oz BMI 56.6 BP 130/72 Blood Pressure Location Lt brachial Position Sitting Pulse 73 Pulse Source Pulse Oximeter Pulse Oximetry (%) 97 Oxygen Delivery Method Room Air Intake Visit Reasons: Obstructive sleep apnea Intake Note: pt is here for follow up and states he is using his machine, overall feeling good. 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 HE IS USING HIS CPAP REGULARLY EVERY NIGHT, AND SOMETIMES EVEN DURING THE DAY WELL IF HE TAKES A NAP. IN FACT HE IS AFRAID TO SLEEP WITHOUT CPAP. IT IS WORKING WELL AND HE SLEEPS GOOD AT LEAST FOR 5 HOURS PER NIGHT. HE IS TRYING TO INCREASE THE DURATION OF USAGE. HE IS TRYING TO LOSE WEIGHT SLOWLY AND HAS LOST ABOUT 4 LB SINCE HIS LAST VISIT. IN GENERAL HE IS FEELING BETTER, LESS SLEEPY DURING THE DAYTIME AND LESS TIRED. FORMERLY [facility] Medical History Periodic limb movements of sleep Nocturnal hypoxemia STACY (obstructive sleep apnea) STACY (obstructive sleep apnea) PTSD (post-traumatic stress disorder) Seasonal allergic rhinitis History of kidney stones Arthritis of knee Snores Elevated cholesterol Supraumbilical hernia Depression Morbid obesity with BMI of 50.0-59.9, adult Morbid obesity Surgical History History of cystoscopy History of lithotripsy History of umbilical hernia repair Family History Mother Cancer of kidney Social History Patient Tobacco Use Status: Former Tobacco user Review of Systems Const All systems reviewed & are unremarkable except as noted in HPI and below Eyes Reports no additional complaints ENT Reports nasal congestion (Mild intermittent) Card Denies chest pain, Denies irregular heart rhythm, Denies leg edema and Reports dyspnea Resp Reports cough, Reports dyspnea and Reports wheezing GI Reports no additional complaints Reports no additional complaints Musc Reports no additional complaints Skin/Breast Reports system reviewed and no additional complaints, except as documented Neuro Reports no additional complaints Psych Reports no additional complaints Endo Reports no additional complaints Patrice/Lymph Reports no additional complaints Aller/Immun Reports no additional complaints and Reports wheezing Physical Exam Vital Signs: Last Vital Signs Pulse 73 01/15/23 14:12 BP 130/72 01/15/23 14:12 Pulse Ox 97 01/15/23 14:12 Oxygen Delivery Method Room Air 01/15/23 14:12 BMI result Body Mass Index 56.6 Const Other: Super obese, BMI 58 General: comfortable, no acute distress, alert and awake Orientation/consciousness: patient oriented x3 HEENT Head: Yes normal to inspection General nose exam: No nasal polyps present and No nasal discharge present Face and sinus: Yes sinuses nontender Mouth: oropharynx normal Throat: No posterior oropharynx normal (Narrow and crowded, Mallampati scale 4) Eyes General: appearance normal, both eyes and all related structures Neck Other: Large and with a lose skin apron. NECK CIRCUMFERENCE 21 IN. Neck: Yes normal visual inspection, Yes no lymphadenopathy, Yes trachea midline and Yes no JVD Thyroid: Thyroid normal Chest Chest palpation & inspection: normal inspection of the chest, normal palpation of entire chest wall and no tenderness Resp Other: PERCUSSION NOTE NOT PERCEPTIBLE BECAUSE OF OBESITY. BREATH SOUNDS ARE DISTANT ESPECIALLY OVER THE BASILAR AREAS. NO WHEEZES RHONCHI OR CREPITATIONS ARE HEARD. Cardio Palpation: normal PMI Rate: regular rate Rhythm: regular rhythm Heart sounds: no gallops and no murmurs GI Palpation (GI): Soft to palpation, Tenderness to palpation present (GI), No hepatosplenomegaly present, Palpable mass present and Other GI palpation findings present (Abdomen is extremely obese and pendulous, a large firm mass in supra umbili) Auscultation: normal bowel sounds Back/Spine/Pelvis Thoracic/Lumbar Spine: thoracic and lumbar spine normal to inspection and thoraco-lumbar ROM limited Skin General skin exam: no rashes or lesions noted Neuro General: patient oriented x3 and no focal motor deficits Cranial nerves: Yes CN's II-XII intact bilaterally Extrem General: Yes normal to inspection, Yes no calf tenderness and Yes venous stasis dermatitis (1 +) Psych Appearance: grossly normal and well kempt Speech and movement: Normal speech and movement present Results Reviewed Results Reviewed: COMPLIANCE REPORT FOR THE LAST 30 NIGHTS IS REVIEWED. HE HAS USED 30/30 NIGHTS, 100%. AVERAGE USE IT PER NIGHT IS 5 HOURS 4 MINUTES. MAXIMUM USAGE 8 HOURS 32 MINUTES. PRESSURE 21/16 CM. AIR LEAKAGE AVERAGE 58.7 L/MINUTES. RESIDUAL AHI ONLY 2.1 Assessment & Plan Assessment & Plan (1) Morbid obesity with BMI of 50.0-59.9, adult: Comment: THIS GENTLEMAN IS A CASE OF SUPER MORBID OBESITY, HE IS FULLY AWARE OF IT AND IS TRYING TO LOSE WEIGHT SLOWLY. Code(s): E66.01 - Morbid (severe) obesity due to excess calories; Z68.43 - Body mass index [BMI] 50.0-59.9, adult (2) STACY (obstructive sleep apnea): Comment: VERY SEVERE OBSTRUCTIVE SLEEP APNEA ALONG WITH NOCTURNAL HYPOXEMIA. TX: DISCUSSED WITH HIM IN GREAT DETAIL. HE HAS BILEVEL SETTING PRESSURE OF 21/16 CMs AND IS GETTING USED TO IT. THE MASK IS FULLFACE OF LARGE SIZE A-fIT 20 , AND SEEMS TO BE COMFORTABLE. HIS COMPLIANCE REPORT SHOWS THAT HE IS VERY COMPLIANT AND BENEFITING, Code(s): G47.33 - Obstructive sleep apnea (adult) (pediatric) (3) Nocturnal hypoxemia: Comment: NOCTURNAL HYPOXEMIA RELATED TO HIS OBSTRUCTIVE, SLEEP APNEA AND NOW THAT HE SHE IS USING IT REGULARLY IT SHOULD BE TAKEN CARE OF. Code(s): G47.34 - Idiopathic sleep related nonobstructive alveolar hypoventilation (4) Periodic limb movements of sleep: Comment: VERY FREQUENT LIMB MOVEMENTS WERE NOTED DURING THE CPAP TITRATION PROCESS. HE DENIES ANY PAIN OR DISCOMFORT AT NIGHT, SO I THINK THE LIMB MOVEMENT DISORDER HAS RESOLVED TO A GREAT EXTENT. Code(s): G47.61 - Periodic limb movement disorder Coding Level of Care Code Est Pt Level 4 (03127) Diagnoses Morbid obesity with BMI of 50.0-59.9, adult E66.01; Z68.43 STACY (obstructive sleep apnea) G47.33 Nocturnal hypoxemia G47.34 Periodic limb movements of sleep G47.61
== END 2023-01-15 14:42 | disposition home or self-care (01) ==
PROVIDERS: PCP Internal Medicine; Visit Provider Internal Medicine
DX: E66.01 Morbid (severe) obesity due to excess calories (principal); Z68.43 Body mass index [BMI] 50.0-59.9, adult; G47.33 Obstructive sleep apnea (adult) (pediatric); G47.34 Idiopathic sleep related nonobstructive alveolar hypoventilation; G47.61 Periodic limb movement disorder
CPT/HCPCS: 99214

== ENCOUNTER → 2023-01-15 13:54 | Outpatient (BNVA) | payer OTHER, SELFPAY | PROVIDERS: PCP Internal Medicine; Visit Provider Internal Medicine | DX: G47.34 Idiopathic sleep related nonobstructive alveolar hypoventilation (principal); G47.33 Obstructive sleep apnea (adult) (pediatric); G47.61 Periodic limb movement disorder; E66.01 Morbid (severe) obesity due to excess calories; Z68.43 Body mass index [BMI] 50.0-59.9, adult | CPT/HCPCS: 99212 ==

== ENCOUNTER 2023-01-23 14:34 | Outpatient (AMB) | payer OTHER, SELFPAY ==
--- NOTE | 2023-01-23 14:35 | MHC.OFFVIS ---
Intake Intake Visit Reasons: 6m/US(set) Intake Note: Patient is present for follow up ultrasound /kidney stones (imaging 01/01/23) Urology Medications: vitamin B6 Blood Thinner: none Crusher Feeder Required: No Accompanied by: Self / Same As Patient Allergies No Known Allergies [No Known Allergies*] Allergy (Verified 01/23/23 14:53) Medication List - Last Reconciled 01/23/23 by AYAAN Flor loratadine 10 mg PO DAILY losartan 25 mg PO DAILY pyridoxine (vitamin B6) 100 mg PO DAILY 90 days sertraline 75 mg PO DAILY simvastatin 10 mg PO DAILY trazodone 75 - 100 mg PO BEDTIME HPI HPI Comments History of Present Illness Details Greg is a pleasant 57-year-old male patient of Dr. Savage. He has a past medical history of STACY, PTSD, seasonal allergies, arthritis, elevated cholesterol, depression, and obesity. He presents to the office today for a follow up of his nephrolithiasis. When asked patient reports to be doing and feeling well. Recent renal imaging results reviewed with the patient today. Bilateral kidneys with no calculi, lesions, and or hydronephrosis noted. Exam is limited by body habitus. No nephrolithiasis or hydronephrosis demonstrated. He denies any issues with his urination. When asked he offers no further issues or concerns at this time. When asked he denies urinary urgency, urinary frequency, incontinence, nocturia, hematuria, dysuria, foul smelling urine, changes to urinary stream, flank pain, fever, and or chills. Discussed, educated, instructed on the importance of drinking adequate amount of fluid daily. Patient reports compliance with vitamin B6 an adding 1 oz of lemon juice to water daily. FORMERLY [facility], [facility] Medical History Periodic limb movements of sleep Nocturnal hypoxemia STACY (obstructive sleep apnea) STACY (obstructive sleep apnea) PTSD (post-traumatic stress disorder) Seasonal allergic rhinitis History of kidney stones Arthritis of knee Snores Elevated cholesterol Supraumbilical hernia Depression Morbid obesity with BMI of 50.0-59.9, adult Morbid obesity Surgical History History of cystoscopy History of lithotripsy History of umbilical hernia repair Family History Mother Cancer of kidney Social History Patient Tobacco Use Status: Former Tobacco user Review of Systems Const Reports as per HPI Eyes Reports no additional complaints ENT Reports no additional complaints Card Reports as per HPI Resp Reports as per HPI GI Reports no additional complaints Reports as per HPI Musc Reports as per HPI Neuro Reports no additional complaints Psych Reports as per HPI Endo Reports no additional complaints Patrice/Lymph Reports no additional complaints Aller/Immun Reports no additional complaints Physical Exam Const General: cooperative, comfortable, no acute distress, well developed, alert and awake Nutritional Appearance: obese Orientation/consciousness: patient oriented x3 Limitations: no limitations HEENT Head: Yes normal to inspection, Yes normocephalic and Yes atraumatic Ears: hearing grossly normal bilaterally Neck Neck: Yes normal visual inspection and Yes trachea midline Chest Chest palpation & inspection: normal inspection of the chest Resp Effort & Inspection: normal respiratory effort and able to speak in complete sentences Cardio Rate: regular rate GI Inspection: Yes normal to inspection General: Yes no CVA tenderness Back/Spine/Pelvis Back: no CVA tenderness Neuro General: patient oriented x3 Extrem General: Yes normal to inspection Psych Appearance: grossly normal Mental Status: mental status grossly normal Speech and movement: Normal speech and movement present and Clear speech present Affect: normal affect Attitude: cooperative Thought process: Normal thought process present Thought content: Normal thought content present Insight: Fair insight present (Psych) Judgement: Fair judgement present (Psych) Results AMB Urinalysis, Automated UA Leukoctes 0 Toño/uL Last Edit by [employer] on 01/23/23 14:52 UA Nitrite Negative Last Edit by [employer] on 01/23/23 14:52 UA Urobilinogen 0.2 mg/dL Last Edit by [employer] on 01/23/23 14:52 UA Protein 0 mg/dL Last Edit by [employer] on 01/23/23 14:52 UA pH 6.0 Last Edit by [employer] on 01/23/23 14:52 UA Blood 0 Audie/uL Last Edit by [employer] on 01/23/23 14:52 UA Specific [place] 1.015 Last Edit by [employer] on 01/23/23 14:52 UA Ketone Negative Last Edit by Henrietta Means on 01/23/23 14:52 UA Bilirubin 0 mg/dL Last Edit by Henrietta Means on 01/23/23 14:52 UA Glucose 0 mg/dL Last Edit by Henrietta Means on 01/23/23 14:52 Results Reviewed Results Reviewed: Laboratory Last Values Urine pH (Auto) 6.0 01/23/23 14:37 Specific [place] (Auto) 1.015 01/23/23 14:37 Urine Protein (Auto) 0 mg/dL 01/23/23 14:37 Glucose (UA)(Auto) 0 mg/dL 01/23/23 14:37 Urine Ketones (Auto) Negative 01/23/23 14:37 Urine Blood (Auto) 0 Audie/uL 01/23/23 14:37 Urine Nitrite (Auto) Negative 01/23/23 14:37 Urine Bilirubin (Auto) 0 mg/dL 01/23/23 14:37 Urine Urobilinogen (Auto) 0.2 mg/dL 01/23/23 14:37 Leukocyte Esterase (Auto) 0 Toño/uL 01/23/23 14:37 Date of Service: 01/01/23 EXAMINATION: US RETROPERITONEAL LIMITED (RENAL ONLY) CLINICAL INFORMATION: Calculus of kidney. COMPARISON: Ultrasound retroperitoneal limited (renal only) 06/14/2022. CT abdomen and pelvis without contrast 04/17/2022. TECHNIQUE: Real-time imaging of the kidneys. Technically difficult study/limited views secondary to body habitus. FINDINGS: RIGHT KIDNEY: 12.0 x 5.6 x 5.4 cm (SAG x AP x TRV). The kidney is normal in size, contour, and echogenicity. Renal cortical thickness is normal. No calculi or focal parenchymal lesions. No hydronephrosis. LEFT KIDNEY: 13.3 x 5.2 x 6.0 cm (SAG x AP x TRV). The kidney is normal in size, contour, and echogenicity. Renal cortical thickness is normal. No calculi or focal parenchymal lesions. No hydronephrosis. IMPRESSION: Exam is limited by body habitus. No nephrolithiasis or hydronephrosis demonstrated. Assessment & Plan Assessment & Plan (1) Calculus, renal: Code(s): N20.0 - Calculus of kidney Plan In office urinalysis results reviewed with the patient today; as noted above Recent renal imaging results reviewed with the patient today; as noted above Patient denies any urinary issues or concerns at this time Continue vitamin B6 as prescribed in discussed Continue drinking adequate amount of fluid daily and adding 1 oz of lemon juice daily Renal ultrasound in 6 months Follow-up in 6 months with imaging to be completed prior; or sooner with any questions, concerns, and or issues. Orders: Orders AMB Urinalysis Automated Today Z13.9 - Encounter for screening, unspecified US renal BI 6 Months N20.0 - Calculus of kidney Medications: Changed From pyridoxine (vitamin B6) 100 mg PO DAILY 90 days 90 tabs 1RF To pyridoxine (vitamin B6) 50 mg (1/2 x 100 mg) PO DAILY 90 days 45 tabs 3RF Patient Instructions: The patient had an opportunity to ask questions regarding the treatment plan. All questions were answered. Physical exam, labs, and imaging were discussed and reviewed in detail. As well as risks, benefits, and discussion of treatment choices. No major barriers to understanding were identified. The patient expressed understanding and agreement with the above treatment plan. The patient was made aware they should contact our office by phone for worsening of their current condition, the appearance of new symptoms, or with any questions or concerns. Compliance is encouraged with any medications and follow up testing that is ordered. It is a privilege to be allowed the opportunity to participate in? your urological care.? Again, if you have any questions or concerns If you have any questions or concerns please do not hesitate to contact me. The office is [phone]. This note is constructed using voice recognition software. While every effort has been made to ensure accuracy valve grinder errors may have been included. Yours sincerely, AYAAN Flor Coding Level of Care Code Est Pt Level 3 (35313) Diagnoses Calculus, renal N20.0
== END 2023-01-23 15:05 | disposition home or self-care (01) ==
PROVIDERS: Visit Provider Nurse Practitioner Family
DX: Z13.9 Encounter for screening, unspecified (principal); N20.0 Calculus of kidney
CPT/HCPCS: 99213

== ENCOUNTER → 2023-01-23 14:34 | Outpatient (BNVA) | payer OTHER, SELFPAY | PROVIDERS: Visit Provider Nurse Practitioner Family | DX: N20.0 Calculus of kidney (principal) | CPT/HCPCS: 81003; 99212 ==

== ENCOUNTER 2023-04-18 13:37 | Outpatient (AMB) | payer OTHER, SELFPAY ==
--- NOTE | 2023-04-18 13:38 | A.OFFVIS_ITS ---
Intake Vital Signs 04/18/23 13:41 Height 5 ft 10 in Weight 395 lb 11.676 oz BMI 56.8 BP 110/62 Blood Pressure Location Lt brachial Position Sitting Pulse 90 Pulse Source Pulse Oximeter Pulse Oximetry (%) 96 Oxygen Delivery Method Room Air Intake Visit Reasons: Obstructive sleep apnea Intake Note: pt is here for follow up and states he is using everynight and states he is feeling good, Nutritional Services Cook Required: No Allergies No Known Allergies [No Known Allergies*] Allergy (Verified 04/18/23 13:54) Medication List - Last Reconciled 04/18/23 by Elpidio Verma MD fluticasone propionate 50 mcg/actuation (Flonase Allergy Relief) 1 spray intranasal BID loratadine 10 mg PO DAILY losartan 25 mg PO DAILY pyridoxine (vitamin B6) 50 mg (1/2 x 100 mg) PO DAILY 90 days sertraline 75 mg PO DAILY simvastatin 10 mg PO DAILY trazodone 75 - 100 mg PO BEDTIME Do you need a note to return to daycare/school/sports/work: No HPI Obstructive sleep apnea HPI Details 58 years old gentleman with super morbid obesity, and severe obstructive sleep apnea, comes of to. 4 months for follow-up He uses bilevel CPAP pressure setting /16. With fullface mask He uses every night, because without using the CPAP he is afraid to go to sleep. Sometimes he uses for a few hours during the daytime as well. His sleep is good, He remains homebound, not able to do much exercise, so he has not able to lose weight. Has some nasal congestion off and on which is controlled with use of Flonase and loratadine. FORMERLY [facility], [facility] Medical History Periodic limb movements of sleep Nocturnal hypoxemia STACY (obstructive sleep apnea) STACY (obstructive sleep apnea) PTSD (post-traumatic stress disorder) Seasonal allergic rhinitis History of kidney stones Arthritis of knee Snores Elevated cholesterol Supraumbilical hernia Depression Morbid obesity with BMI of 50.0-59.9, adult Morbid obesity Surgical History History of cystoscopy History of lithotripsy History of umbilical hernia repair Family History Mother Cancer of kidney Social History Patient Tobacco Use Status: Former Tobacco user Review of Systems Const All systems reviewed & are unremarkable except as noted in HPI and below Eyes Reports no additional complaints ENT Reports nasal congestion (Mild intermittent) Card Denies chest pain, Denies irregular heart rhythm, Denies leg edema and Reports dyspnea Resp Reports cough, Reports dyspnea and Reports wheezing GI Reports no additional complaints Reports no additional complaints Musc Reports no additional complaints Skin/Breast Reports system reviewed and no additional complaints, except as documented Neuro Reports no additional complaints Psych Reports no additional complaints Endo Reports no additional complaints Patrice/Lymph Reports no additional complaints Aller/Immun Reports no additional complaints and Reports wheezing Physical Exam Vital Signs: Last Vital Signs Pulse 90 04/18/23 13:41 BP 110/62 04/18/23 13:41 Pulse Ox 96 04/18/23 13:41 Oxygen Delivery Method Room Air 04/18/23 13:41 BMI result Body Mass Index 56.8 Const Other: Super obese, BMI 58 General: comfortable, no acute distress, alert and awake Orientation/consciousness: patient oriented x3 HEENT Head: Yes normal to inspection General nose exam: No nasal polyps present and No nasal discharge present Face and sinus: Yes sinuses nontender Mouth: oropharynx normal Throat: No posterior oropharynx normal (Narrow and crowded, Mallampati scale 4) Eyes General: appearance normal, both eyes and all related structures Neck Other: Large and with a lose skin apron. NECK CIRCUMFERENCE 21 IN. Neck: Yes normal visual inspection, Yes no lymphadenopathy, Yes trachea midline and Yes no JVD Thyroid: Thyroid normal Chest Chest palpation & inspection: normal inspection of the chest, normal palpation of entire chest wall and no tenderness Resp Other: PERCUSSION NOTE NOT PERCEPTIBLE BECAUSE OF OBESITY. BREATH SOUNDS ARE DISTANT ESPECIALLY OVER THE BASILAR AREAS. NO WHEEZES RHONCHI OR CREPITATIONS ARE HEARD. Cardio Palpation: normal PMI Rate: regular rate Rhythm: regular rhythm Heart sounds: no gallops and no murmurs GI Palpation (GI): Soft to palpation, Tenderness to palpation present (GI), No hepatosplenomegaly present, Palpable mass present and Other GI palpation findings present (Abdomen is extremely obese and pendulous, a large firm mass in supra umbili) Auscultation: normal bowel sounds Back/Spine/Pelvis Thoracic/Lumbar Spine: thoracic and lumbar spine normal to inspection and thoraco-lumbar ROM limited Skin General skin exam: no rashes or lesions noted Neuro General: patient oriented x3 and no focal motor deficits Cranial nerves: Yes CN's II-XII intact bilaterally Extrem General: Yes normal to inspection, Yes no calf tenderness and Yes venous stasis dermatitis (1 +) Psych Appearance: grossly normal and well kempt Speech and movement: Normal speech and movement present Results Reviewed Results Reviewed: Compliance data not available. But as per his statement he uses it every night at least for 6 hours per night. Assessment & Plan Assessment & Plan (1) Morbid obesity with BMI of 50.0-59.9, adult: Comment: THIS GENTLEMAN IS A CASE OF SUPER MORBID OBESITY, HE IS FULLY AWARE OF IT AND IS TRYING TO LOSE WEIGHT SLOWLY. Code(s): E66.01 - Morbid (severe) obesity due to excess calories; Z68.43 - Body mass index [BMI] 50.0-59.9, adult Plan: Again talked to him about diet, and need to do daily exercise. (2) STACY (obstructive sleep apnea): Comment: VERY SEVERE OBSTRUCTIVE SLEEP APNEA ALONG WITH NOCTURNAL HYPOXEMIA. HE IS USING CPAP VERY REGULARLY EVERY NIGHT. Code(s): G47.33 - Obstructive sleep apnea (adult) (pediatric) Plan: TX: DISCUSSED WITH HIM IN GREAT DETAIL. HE HAS BILEVEL SETTING PRESSURE OF 21/16 CMs AND USES REGULARLY WITHOUT ANY ISSUES. THE MASK IS FULLFACE OF LARGE SIZE A-fIT 20 , AND SEEMS TO BE COMFORTABLE. WILL CONTACT THE DME OFFICE AND SEE IF THEY CAN HAVE A DOWNLOAD OF HIS COMPLIANCE DATA. (3) Nocturnal hypoxemia: Comment: NOCTURNAL HYPOXEMIA RELATED TO HIS OBSTRUCTIVE, SLEEP APNEA AND NOW THAT HE SHE IS USING IT REGULARLY IT SHOULD BE TAKEN CARE OF. Code(s): G47.34 - Idiopathic sleep related nonobstructive alveolar hypoventilation Plan: ABOVE (4) Periodic limb movements of sleep: Comment: VERY FREQUENT LIMB MOVEMENTS WERE NOTED DURING THE CPAP TITRATION PROCESS. HE DENIES ANY PAIN OR DISCOMFORT AT NIGHT, SO I THINK THE LIMB MOVEMENT DISORDER HAS RESOLVED TO A GREAT EXTENT. Code(s): G47.61 - Periodic limb movement disorder Plan: ABOVE Coding Level of Care Code Est Pt Level 3 (68561) Diagnoses Morbid obesity with BMI of 50.0-59.9, adult E66.01; Z68.43 STACY (obstructive sleep apnea) G47.33 Nocturnal hypoxemia G47.34 Periodic limb movements of sleep G47.61
[2023-04-18 13:41] VITALS: BP 110/62; PULSE 90; O2SAT 96; BMI 56.8
== END 2023-04-18 13:55 | disposition home or self-care (01) ==
PROVIDERS: PCP Internal Medicine; Visit Provider Internal Medicine
DX: E66.01 Morbid (severe) obesity due to excess calories (principal); Z68.43 Body mass index [BMI] 50.0-59.9, adult; G47.33 Obstructive sleep apnea (adult) (pediatric); G47.34 Idiopathic sleep related nonobstructive alveolar hypoventilation; G47.61 Periodic limb movement disorder
CPT/HCPCS: 99213

== ENCOUNTER → 2023-04-18 13:37 | Outpatient (BNVA) | payer OTHER, SELFPAY | PROVIDERS: PCP Internal Medicine; Visit Provider Internal Medicine | DX: G47.33 Obstructive sleep apnea (adult) (pediatric) (principal); G47.34 Idiopathic sleep related nonobstructive alveolar hypoventilation; G47.61 Periodic limb movement disorder; E66.01 Morbid (severe) obesity due to excess calories; Z68.43 Body mass index [BMI] 50.0-59.9, adult | CPT/HCPCS: 99212 ==

== ENCOUNTER 2023-06-03 11:17 | Outpatient (REF) | payer OTHER, SELFPAY ==
[2023-06-03 11:33] LABS: MANUAL DIFF FLAG NO
[2023-06-03 12:05] LABS: Basophils Absolute Auto 0.1 X10*3/uL (0.0-0.2); Basophils Percent Auto 0.8 % (0-2); Eosinophils Absolute Auto 0.3 X10*3/uL (0.0-0.4); Eosinophils Percent Auto 3.3 % (0-4); Hemoglobin 13.9 g/dl (14.0-18.0); Imm Gran Abs Auto 0.04 X10*3/uL (0.00-0.03); Imm Gran Pct Auto 0.5 % (0.0-0.4); Lymphocytes Absolute Auto 2.1 X10*3/uL (1.2-4.9); Lymphocytes Percent Auto 23.6 % (20-40); Mean Corpuscular HGB Conc 32.3 g/dl (31.0-36.0); Mean Corpuscular Hemoglobin 29.1 pg (27.0-33.0); Mean Platelet Volume 10.8 fL (9.4-12.4); Monocytes Absolute Auto 0.9 X10*3/uL (0.1-1.2); Monocytes Percent Auto 10.7 % (2-11); Neutrophils Absolute Auto 5.4 x10*3/uL (2.0-8.3); Neutrophils Percent Auto 61.1 % (45-73); Platelet Count 249 X10*3/uL (160-400); Red Blood Count 4.78 X10*6/uL (4.60-5.80); Red Cell Distribution Width 14.5 % (11.0-16.0); White Blood Count 8.8 X10*3/uL (4.8-10.8)
[2023-06-03 12:57] LABS: Alanine Aminotransferase 25 U/L (0-40); Albumin Level 4.1 g/dL (3.5-5.0); Alkaline Phosphatase 61 U/L (39-117); Anion Gap 12 (12-20); Aspartate Amino Transferase 20 U/L (5-37); Bilirubin Total 0.4 mg/dL (0.0-1.0); Blood Urea Nitrogen 17 mg/dL (9-16); Calcium 9.4 mg/dL (8.4-10.2); Carbon Dioxide 25 mmol/L (22-29); Chloride 107 mmol/L (96-108); Estimated Glomerular Filt Rate > 60; Glucose Random 97 mg/dL (60-115); Iron 57 mcg/dL (45-160); Percent Iron Saturation 21 % (15-50); Sodium 140 mmol/L (135-145); Total Iron Binding Capacity 278 mcg/dL (228-428); Total Protein 7.1 g/dL (6.5-8.0); Unsaturated Iron Binding 221 ug/dL
== END 2023-06-03 11:18 | disposition home or self-care (01) ==
LOC: HO.LAB 11:17
PROVIDERS: PCP Internal Medicine; Visit Provider Internal Medicine
DX: I10 Essential (primary) hypertension (principal); G47.33 Obstructive sleep apnea (adult) (pediatric); D64.9 Anemia, unspecified
CPT/HCPCS: 36415; 80053; 83540; 85025

== ENCOUNTER 2023-07-19 10:19 | Outpatient (REF) | payer OTHER, SELFPAY ==
--- NOTE | ~2023-07-19 | US_ITS ---
EXAMINATION: US RETROPERITONEAL LIMITED (RENAL ONLY) CLINICAL INFORMATION: Calculus of kidney. COMPARISON: Renal ultrasound 01/01/2023 and 06/14/2022. CT abdomen and pelvis 04/17/2022. X-ray KUB 10/05/2015 and 09/28/2015. TECHNIQUE: Real-time imaging of the kidneys. Technically limited study secondary to body habitus. FINDINGS: RIGHT KIDNEY: 11.6 x 5.6 x 5.0 cm (SAG x AP x TRV). The kidney is normal in size, contour, and echogenicity. Renal cortical thickness is normal. No calculi or focal parenchymal lesions. No hydronephrosis. LEFT KIDNEY: 13.4 x 5.3 x 5.1 cm (SAG x AP x TRV). The kidney is normal in size, contour, and echogenicity. Renal cortical thickness is normal. No calculi or focal parenchymal lesions. No hydronephrosis. US/US renal BI IMPRESSION: Unremarkable examination, without renal calculus, hydronephrosis or solid lesion noted.
== END 2023-07-19 10:20 | disposition home or self-care (01) ==
LOC: HO.US 10:19
PROVIDERS: PCP Internal Medicine; Visit Provider Nurse Practitioner Family
DX: N20.0 Calculus of kidney (principal)
CPT/HCPCS: 76775

== ENCOUNTER 2023-08-20 13:42 | Outpatient (AMB) | payer OTHER, SELFPAY ==
--- NOTE | 2023-08-20 13:51 | MHC.OFFVIS ---
Vital Signs 08/20/23 13:52 Height 5 ft 10 in Weight 389 lb BMI 55.8 BP 124/72 Blood Pressure Location Lt brachial Position Sitting Pulse 81 Pulse Source Pulse Oximeter Pulse Oximetry (%) 97 Oxygen Delivery Method Room Air Intake Visit Reasons: Obstructive sleep apnea Intake Note: pt is here for follow up of STACY and the machine is usage is going okay, but he has a brain that will not shut off. Customer Program Manager Required: No Allergies No Known Allergies [No Known Allergies*] Allergy (Verified 08/20/23 14:01) Medication List - Last Reconciled 08/20/23 by Elpidio Verma MD loratadine 10 mg PO DAILY losartan 25 mg PO DAILY pyridoxine (vitamin B6) 50 mg (1/2 x 100 mg) PO DAILY 90 days sertraline 75 mg PO DAILY simvastatin 10 mg PO DAILY trazodone 75 - 100 mg PO BEDTIME Do you need a note to return to daycare/school/sports/work: No HPI HPI Obstructive sleep apnea: Details: Greg is 57 years old morbidly obese gentleman with obstructive sleep apnea. He suffers from posttraumatic stress disorder, and has difficulty in focusing. His mind stays active and wanders around during the night. So he gets only 3-4 hours sleep at a time. He does use the CPAP regularly every night, But less than 4 hours He is definitely benefiting from the use of CPAP . He still feels somewhat tired and sleepy during the daytime. [facility] Medical History Periodic limb movements of sleep Nocturnal hypoxemia STACY (obstructive sleep apnea) STACY (obstructive sleep apnea) PTSD (post-traumatic stress disorder) Seasonal allergic rhinitis History of kidney stones Arthritis of knee Snores Elevated cholesterol Supraumbilical hernia Depression Morbid obesity with BMI of 50.0-59.9, adult Morbid obesity Surgical History History of cystoscopy History of lithotripsy History of umbilical hernia repair Family History Mother Cancer of kidney Social History Patient Tobacco Use Status: Former Tobacco user Review of Systems Const All systems reviewed & are unremarkable except as noted in HPI and below Eyes Reports no additional complaints ENT Reports nasal congestion (Mild intermittent) Card Denies chest pain, Denies irregular heart rhythm, Denies leg edema and Reports dyspnea Resp Reports cough, Reports dyspnea and Reports wheezing GI Reports no additional complaints Reports no additional complaints Musc Reports no additional complaints Skin/Breast Reports system reviewed and no additional complaints, except as documented Neuro Reports no additional complaints Psych Reports no additional complaints Endo Reports no additional complaints Patrice/Lymph Reports no additional complaints Aller/Immun Reports no additional complaints and Reports wheezing Physical Exam Vital Signs: Last Vital Signs Pulse 81 08/20/23 13:52 BP 124/72 08/20/23 13:52 Pulse Ox 97 08/20/23 13:52 Oxygen Delivery Method Room Air 08/20/23 13:52 BMI result Body Mass Index 55.8 Const Other: Super obese, BMI 58 General: comfortable, no acute distress, alert and awake Orientation/consciousness: patient oriented x3 HEENT Head: Yes normal to inspection General nose exam: No nasal polyps present and No nasal discharge present Face and sinus: Yes sinuses nontender Mouth: oropharynx normal Throat: No posterior oropharynx normal (Narrow and crowded, Mallampati scale 4) Eyes General: appearance normal, both eyes and all related structures Neck Other: Large and with a lose skin apron. NECK CIRCUMFERENCE 21 IN. Neck: Yes normal visual inspection, Yes no lymphadenopathy, Yes trachea midline and Yes no JVD Thyroid: Thyroid normal Chest Chest palpation & inspection: normal inspection of the chest, normal palpation of entire chest wall and no tenderness Resp Other: PERCUSSION NOTE NOT PERCEPTIBLE BECAUSE OF OBESITY. BREATH SOUNDS ARE DISTANT ESPECIALLY OVER THE BASILAR AREAS. NO WHEEZES RHONCHI OR CREPITATIONS ARE HEARD. Cardio Palpation: normal PMI Rate: regular rate Rhythm: regular rhythm Heart sounds: no gallops and no murmurs GI Palpation (GI): Soft to palpation, Tenderness to palpation present (GI), No hepatosplenomegaly present, Palpable mass present and Other GI palpation findings present (Abdomen is extremely obese and pendulous, a large firm mass in supra umbili) Auscultation: normal bowel sounds Back/Spine/Pelvis Thoracic/Lumbar Spine: thoracic and lumbar spine normal to inspection and thoraco-lumbar ROM limited Skin General skin exam: no rashes or lesions noted Neuro General: patient oriented x3 and no focal motor deficits Cranial nerves: Yes CN's II-XII intact bilaterally Extrem General: Yes normal to inspection, Yes no calf tenderness and Yes venous stasis dermatitis (1 +) Psych Appearance: grossly normal and well kempt Speech and movement: Normal speech and movement present Results Reviewed Results Reviewed: Compliance report for the last 30 nights is reviewed. He has used 30/30 nights,, 100% Average use it per night is 3 hours 50 minutes which is still less than 4 hours. He is on by Pap pressure setting , There is the moderate amount of air leak. But his residual AHI is only 1.3 Assessment & Plan Assessment & Plan (1) Morbid obesity with BMI of 50.0-59.9, adult: Comment: THIS GENTLEMAN IS A CASE OF SUPER MORBID OBESITY, HE IS FULLY AWARE OF IT AND IS TRYING TO LOSE WEIGHT SLOWLY. Code(s): E66.01 - Morbid (severe) obesity due to excess calories; Z68.43 - Body mass index [BMI] 50.0-59.9, adult Category: Medical Plan: Encouraged to keep on losing some weight (2) STACY (obstructive sleep apnea): Comment: VERY SEVERE OBSTRUCTIVE SLEEP APNEA ALONG WITH NOCTURNAL HYPOXEMIA. HE IS USING BIPAP VERY REGULARLY EVERY NIGHT. Code(s): G47.33 - Obstructive sleep apnea (adult) (pediatric) Category: Medical Plan: REVIEWED THE COMPLIANCE REPORT AND I ADVISED HIM THAT HE HAS TO START USING IT AT LEAST FOR 5 HOURS EVERY NIGHT (3) Periodic limb movements of sleep: Comment: VERY FREQUENT LIMB MOVEMENTS WERE NOTED DURING THE CPAP TITRATION PROCESS. HE DENIES ANY PAIN OR DISCOMFORT AT NIGHT, SO I THINK THE LIMB MOVEMENT DISORDER HAS RESOLVED TO A GREAT EXTENT. Code(s): G47.61 - Periodic limb movement disorder Category: Medical Plan: DENIES ANY SYMPTOMS OF RESTLESS LEG SYNDROME (4) Nocturnal hypoxemia: Comment: NOCTURNAL HYPOXEMIA RELATED TO HIS OBSTRUCTIVE, SLEEP APNEA AND NOW THAT HE SHE IS USING IT REGULARLY IT SHOULD BE TAKEN CARE OF. Code(s): G47.34 - Idiopathic sleep related nonobstructive alveolar hypoventilation Category: Medical Plan: NO FURTHER ACTION NEEDED Coding Level of Care Code Est Pt Level 3 (32440) Diagnoses Morbid obesity with BMI of 50.0-59.9, adult E66.01; Z68.43 STACY (obstructive sleep apnea) G47.33 Periodic limb movements of sleep G47.61 Nocturnal hypoxemia G47.34
[2023-08-20 13:52] VITALS: BP 124/72; PULSE 81; O2SAT 97; BMI 55.8
== END 2023-08-20 14:10 | disposition home or self-care (01) ==
PROVIDERS: PCP Internal Medicine; Visit Provider Internal Medicine
DX: E66.01 Morbid (severe) obesity due to excess calories (principal); Z68.43 Body mass index [BMI] 50.0-59.9, adult; G47.33 Obstructive sleep apnea (adult) (pediatric); G47.61 Periodic limb movement disorder; G47.34 Idiopathic sleep related nonobstructive alveolar hypoventilation
CPT/HCPCS: 99213

== ENCOUNTER → 2023-08-20 13:42 | Outpatient (BNVA) | payer OTHER, SELFPAY | PROVIDERS: PCP Internal Medicine; Visit Provider Internal Medicine | DX: G47.33 Obstructive sleep apnea (adult) (pediatric) (principal); G47.61 Periodic limb movement disorder; G47.34 Idiopathic sleep related nonobstructive alveolar hypoventilation; E66.01 Morbid (severe) obesity due to excess calories; Z68.43 Body mass index [BMI] 50.0-59.9, adult | CPT/HCPCS: 99212 ==

== ENCOUNTER 2023-09-03 11:36 | Outpatient (AMB) | payer OTHER, SELFPAY ==
--- NOTE | 2023-09-03 11:52 | A.OFFVIS_ITS ---
Intake Visit Reasons: US Results(set) Intake Note: Patient is present for follow up ultrasound /kidney stones (imaging 01/01/23) Urology Medications: vitamin B6 Blood Thinner: none Quality Head Required: No Accompanied by: Self / Same As Patient Allergies No Known Allergies [No Known Allergies*] Allergy (Verified 08/20/23 14:01) HPI Comments Details: Greg is a pleasant 57-year-old male patient of Dr. Savage. He has a past medical history of STACY, PTSD, seasonal allergies, arthritis, elevated cholesterol, depression, and obesity. He presents to the office today for a follow up of his nephrolithiasis. When asked patient reports to be doing and feeling well. Recent renal imaging results reviewed with the patient today. Bilateral kidneys with no calculi, lesions, and or hydronephrosis. Unremarkable examination. Patient reports noting episode of left-sided flank pain approximately a week and a half ago that has since subsided. He otherwise denies urinary urgency, urinary frequency, incontinence, nocturia, hematuria, dysuria, foul smelling urine, changes to urinary stream, flank pain, fever, and or chills. Discussed, educated, instructed on the importance of drinking adequate amount of fluid daily. Patient reports compliance with vitamin B6 an adding 1 oz of lemon juice to water daily. In office urinalysis results reviewed with the patient today. He otherwise offers no other issues or concerns at this time. PENDING SALE TO [facility] Medical History Periodic limb movements of sleep Nocturnal hypoxemia STACY (obstructive sleep apnea) STACY (obstructive sleep apnea) PTSD (post-traumatic stress disorder) Seasonal allergic rhinitis History of kidney stones Arthritis of knee Snores Elevated cholesterol Supraumbilical hernia Depression Morbid obesity with BMI of 50.0-59.9, adult Morbid obesity Surgical History History of cystoscopy History of lithotripsy History of umbilical hernia repair Family History Mother Cancer of kidney Social History Patient Tobacco Use Status: Former Tobacco user Review of Systems Const Reports as per HPI Eyes Reports no additional complaints ENT Reports no additional complaints Card Reports as per HPI Resp Reports as per HPI GI Reports no additional complaints Reports as per [facility] Musc Reports as per [facility] Neuro Reports no additional complaints Psych Reports as per [facility] Endo Reports no additional complaints Patrice/Lymph Reports no additional complaints Aller/Immun Reports no additional complaints Physical Exam Const General: cooperative, healthy appearing, comfortable, no acute distress, well developed, alert and awake Nutritional Appearance: obese Orientation/consciousness: patient oriented x3 Limitations: no limitations HEENT Head: Yes normal to inspection, Yes normocephalic and Yes atraumatic Ears: hearing grossly normal bilaterally Neck Neck: Yes normal visual inspection and Yes trachea midline Chest Chest palpation & inspection: normal inspection of the chest Resp Effort & Inspection: normal respiratory effort and able to speak in complete sentences Cardio Rate: regular rate GI Inspection: Yes normal to inspection General: Yes no CVA tenderness Back/Spine/Pelvis Back: no CVA tenderness Neuro General: patient oriented x3 Extrem General: Yes normal to inspection Psych Appearance: grossly normal Mental Status: mental status grossly normal Speech and movement: Normal speech and movement present and Clear speech present Affect: normal affect Attitude: cooperative Thought process: Normal thought process present Thought content: Normal thought content present Insight: Fair insight present (Psych) Judgement: Fair judgement present (Psych) Results AMB Urinalysis, Automated UA Leukoctes 0 Toño/uL Last Edit by [employer] on 09/03/23 12:16 UA Nitrite Negative Last Edit by [employer] on 09/03/23 12:16 UA Urobilinogen 0.2 mg/dL Last Edit by [employer] on 09/03/23 12:16 UA Protein 0 mg/dL Last Edit by [employer] on 09/03/23 12:16 UA pH 6.0 Last Edit by [employer] on 09/03/23 12:16 UA Blood 0 Audie/uL Last Edit by [employer] on 09/03/23 12:16 UA Specific Brady 1.020 Last Edit by [employer] on 09/03/23 12:16 UA Ketone Negative Last Edit by [employer] on 09/03/23 12:16 UA Bilirubin 0 mg/dL Last Edit by [employer] on 09/03/23 12:16 UA Glucose 0 mg/dL Last Edit by Henrietta Means on 09/03/23 12:16 Results Reviewed Results Reviewed: Laboratory Last Values Urine pH (Auto) 6.0 09/03/23 12:14 Specific Brady (Auto) 1.020 09/03/23 12:14 Urine Protein (Auto) 0 mg/dL 09/03/23 12:14 Glucose (UA)(Auto) 0 mg/dL 09/03/23 12:14 Urine Ketones (Auto) Negative 09/03/23 12:14 Urine Blood (Auto) 0 Audie/uL 09/03/23 12:14 Urine Nitrite (Auto) Negative 09/03/23 12:14 Urine Bilirubin (Auto) 0 mg/dL 09/03/23 12:14 Urine Urobilinogen (Auto) 0.2 mg/dL 09/03/23 12:14 Leukocyte Esterase (Auto) 0 Toño/uL 09/03/23 12:14 Date of Service: 07/19/23 EXAMINATION: US RETROPERITONEAL LIMITED (RENAL ONLY) FINDINGS: RIGHT KIDNEY: 11.6 x 5.6 x 5.0 cm (SAG x AP x TRV). The kidney is normal in size, contour, and echogenicity. Renal cortical thickness is normal. No calculi or focal parenchymal lesions. No hydronephrosis. LEFT KIDNEY: 13.4 x 5.3 x 5.1 cm (SAG x AP x TRV). The kidney is normal in size, contour, and echogenicity. Renal cortical thickness is normal. No calculi or focal parenchymal lesions. No hydronephrosis. IMPRESSION: Unremarkable examination, without renal calculus, hydronephrosis or solid lesion noted. Assessment & Plan Assessment & Plan (1) Calculus, renal: Code(s): N20.0 - Calculus of kidney Category: Medical Plan In office urinalysis results reviewed with the patient today; as noted above Recent renal imaging results reviewed with the patient today; as noted above Patient denies any urinary issues or concerns at this time Continue vitamin B6 as prescribed in discussed Continue drinking adequate amount of fluid daily and adding 1 oz of lemon juice daily Renal ultrasound in 6 months Follow-up in 6 months with imaging to be completed prior; or sooner with any questions, concerns, and or issues. Orders: Orders US renal BI 6 Months N20.0 - Calculus of kidney AMB Urinalysis Automated Today Z13.9 - Encounter for screening, unspecified Medications: Refilled pyridoxine (vitamin B6) 50 mg (1/2 x 100 mg) PO DAILY 90 days 45 tabs 3RF Patient Instructions: The patient had an opportunity to ask questions regarding the treatment plan. All questions were answered. Physical exam, labs, and imaging were discussed and reviewed in detail. As well as risks, benefits, and discussion of treatment choices. No major barriers to understanding were identified. The patient expr essed understanding and agreement with the above treatment plan. The patient was made aware they should contact our office by phone for worsening of their current condition, the appearance of new symptoms, or with any questions or concerns. Compliance is encouraged with any medications and follow up testing that is ordered. It is a privilege to be allowed the opportunity to participate in? your urological care.? Again, if you have any questions or concerns If you have any questions or concerns please do not hesitate to contact me. The office is [phone]. This note is constructed using voice recognition software. While every effort has been made to ensure accuracy contact lens assistant errors may have been included. Yours sincerely, AYAAN Flor Coding Level of Care Code Est Pt Level 3 (94275) Diagnoses Calculus, renal N20.0
== END 2023-09-03 12:14 | disposition home or self-care (01) ==
PROVIDERS: PCP Internal Medicine; Visit Provider Nurse Practitioner Family
DX: Z13.9 Encounter for screening, unspecified (principal); N20.0 Calculus of kidney
CPT/HCPCS: 99213

== ENCOUNTER → 2023-09-03 11:36 | Outpatient (BNVA) | payer OTHER, SELFPAY | PROVIDERS: PCP Internal Medicine; Visit Provider Nurse Practitioner Family | DX: N20.0 Calculus of kidney (principal) | CPT/HCPCS: 81003; 99212 ==

== ENCOUNTER 2024-02-24 09:56 | Outpatient (REF) | payer OTHER, SELFPAY | END 2024-02-24 09:57 | disposition home or self-care (01) | LOC: HO.US 09:56 | PROVIDERS: PCP Internal Medicine; Visit Provider Nurse Practitioner Family | DX: N20.0 Calculus of kidney (principal) | CPT/HCPCS: 76775 ==

== ENCOUNTER 2024-02-25 13:22 | Outpatient (AMB) | payer OTHER, SELFPAY ==
[2024-02-25 13:33] VITALS: BP 110/78; PULSE 95; O2SAT 96; BMI 57.6
--- NOTE | 2024-02-25 13:33 | A.OFFVIS_ITS ---
Vital Signs 02/25/24 13:33 Height 5 ft 10 in Weight 401 lb 3.861 oz BMI 57.6 BP 110/78 Blood Pressure Location Lt brachial Position Sitting Pulse 95 Pulse Source Pulse Oximeter Pulse Oximetry (%) 96 Oxygen Delivery Method Room Air Intake Visit Reasons: basim Intake Note: pt is here for follow up and is using cpap, doing okay Car Dumper Required: No Allergies No Known Allergies [No Known Allergies*] Allergy (Verified 02/25/24 13:52) Medication List - Last Reconciled 02/25/24 by Elpidio Verma MD loratadine 10 mg PO DAILY losartan 25 mg PO DAILY pyridoxine (vitamin B6) 50 mg PO DAILY 90 days sertraline 75 mg PO DAILY simvastatin 10 mg PO DAILY trazodone 75 - 100 mg PO BEDTIME Do you need a note to return to daycare/school/sports/work: No HPI HPI basim: Details: THIS 58 YEARS OLD GENTLEMAN WITH SUPER MORBID OBESITY AND OBSTRUCTIVE SLEEP APNEA IS HERE FOR HIS ROUTINE FOLLOW-UP AFTER 6 MONTHS. USES CPAP VERY REGULARLY EVERY NIGHT AND SLEEPS GOOD FOR A FEW HOURS AT A TIME THEN WAKES UP GOES TO THE BATHROOM AND THEN GOES BACK TO SLEEP. OVERALL HE IS USING CPAP AT LEAST FOR 5-6 HOURS EVERY NIGHT. HE REMAINS TIRED, DEPRESSED, AND SEDENTARY DURING THE DAYTIME. HE DOES NOT OVEREAT BUT HIS EATING HABITS ARE SOMEWHAT ERRATIC. MOST OF HIS ISSUE IS ONGOING DEPRESSION, AND HE DOES NOT FEEL LIKE GETTING UP AND MOVING AROUND. SO HE HAS GAINED BACK ABOUT. 12 LB OF WEIGHT THIS TIME [facility] Medical History Periodic limb movements of sleep Nocturnal hypoxemia BASIM (obstructive sleep apnea) BASIM (obstructive sleep apnea) PTSD (post-traumatic stress disorder) Seasonal allergic rhinitis History of kidney stones Arthritis of knee Snores Elevated cholesterol Supraumbilical hernia Depression Morbid obesity with BMI of 50.0-59.9, adult Morbid obesity Surgical History History of cystoscopy History of lithotripsy History of umbilical hernia repair Family History Mother Cancer of kidney Social History Patient Tobacco Use Status: Former Tobacco user Review of Systems Const All systems reviewed & are unremarkable except as noted in HPI and below Eyes Reports no additional complaints ENT Reports nasal congestion (Mild intermittent) Card Denies chest pain, Denies irregular heart rhythm, Denies leg edema and Reports dyspnea Resp Reports cough, Reports dyspnea and Reports wheezing GI Reports no additional complaints Reports no additional complaints Musc Reports no additional complaints Skin/Breast Reports system reviewed and no additional complaints, except as documented Neuro Reports no additional complaints Psych Reports no additional complaints Endo Reports no additional complaints Patrice/Lymph Reports no additional complaints Aller/Immun Reports no additional complaints and Reports wheezing Physical Exam Vital Signs: Last Vital Signs Pulse 95 02/25/24 13:33 BP 110/78 02/25/24 13:33 Pulse Ox 96 02/25/24 13:33 Oxygen Delivery Method Room Air 02/25/24 13:33 BMI result Body Mass Index 57.6 Const Other: Super obese, BMI 58 General: comfortable, no acute distress, alert and awake Orientation/consciousness: patient oriented x3 HEENT Head: Yes normal to inspection General nose exam: No nasal polyps present and No nasal discharge present Face and sinus: Yes sinuses nontender Mouth: oropharynx normal Throat: No posterior oropharynx normal (Narrow and crowded, Mallampati scale 4) Eyes General: appearance normal, both eyes and all related structures Neck Other: Large and with a lose skin apron. NECK CIRCUMFERENCE 21 IN. Neck: Yes normal visual inspection, Yes no lymphadenopathy, Yes trachea midline and Yes no JVD Thyroid: Thyroid normal Chest Chest palpation & inspection: normal inspection of the chest, normal palpation of entire chest wall and no tenderness Resp Other: PERCUSSION NOTE NOT PERCEPTIBLE BECAUSE OF OBESITY. BREATH SOUNDS ARE DISTANT ESPECIALLY OVER THE BASILAR AREAS. NO WHEEZES RHONCHI OR CREPITATIONS ARE HEARD. Cardio Palpation: normal PMI Rate: regular rate Rhythm: regular rhythm Heart sounds: no gallops and no murmurs GI Palpation (GI): Soft to palpation, Tenderness to palpation present (GI), No hepatosplenomegaly present, Palpable mass present and Other GI palpation findings present (Abdomen is extremely obese and pendulous, a large firm mass in supra umbili) Auscultation: normal bowel sounds Back/Spine/Pelvis Thoracic/Lumbar Spine: thoracic and lumbar spine normal to inspection and thoraco-lumbar ROM limited Skin General skin exam: no rashes or lesions noted Neuro General: patient oriented x3 and no focal motor deficits Cranial nerves: Yes CN's II-XII intact bilaterally Extrem General: Yes normal to inspection, Yes no calf tenderness and Yes venous stasis dermatitis (1 +) Psych Appearance: grossly normal and well kempt Speech and movement: Normal speech and movement present Results Reviewed Results Reviewed: COMPLIANCE REPORT FOR THE LAST 30 NIGHTS IS REVIEWED HE HAS USED 30/30 NIGHTS,. 100% AVERAGE USE IT PER NIGHT 5 HOURS 41 MINUTES WHICH IS MUCH BETTER THAN BEFORE. HE IS ON BILEVEL PRESSURE OF 21/16 CM . THERE IS THE MODERATE DEGREE OF AIR LEAK. RESIDUAL AHI 1.9 WHICH IS OKAY Assessment & Plan Assessment & Plan (1) Morbid obesity with BMI of 50.0-59.9, adult: Comment: THIS GENTLEMAN IS A CASE OF SUPER MORBID OBESITY, HE IS FULLY AWARE OF IT AND IS TRYING TO LOSE WEIGHT SLOWLY. HE TELLS ME THAT HIS ONGOING DEPRESSION AND ERRATIC SCHEDULE OF EATING IS WHAT MAKES HIM PUT ON WEIGHT. Code(s): E66.01 - Morbid (severe) obesity due to excess calories; Z68.43 - Body mass index [BMI] 50.0-59.9, adult Category: Medical Plan: ONCE AGAIN WE TALKED ABOUT EATING. HE SHOULD HAVE 3 REGULAR MEALS EVERY DAY, CUT DOWN THE PORTIONS. AND CUT DOWN THE CONTENT OF CARBOHYDRATES , INCREASE INTAKE OF VEGGIES AND FRUITS. (2) BASIM (obstructive sleep apnea): Comment: VERY SEVERE OBSTRUCTIVE SLEEP APNEA ALONG WITH NOCTURNAL HYPOXEMIA. HE IS USING BIPAP 21/16 VERY REGULARLY EVERY NIGHT. HE IS FEELING GOOD WITH THE USE OF BIPAP. COMPLIANCE IS GOOD. Code(s): G47.33 - Obstructive sleep apnea (adult) (pediatric) Category: Medical Plan: COMMENDED FOR GOOD COMPLIANCE, ENCOURAGED TO KEEP ON USING THE BIPAP EVERY NIGHT AT LEAST FOR 6 HOURS PER NIGHT. (3) Nocturnal hypoxemia: Comment: NOCTURNAL HYPOXEMIA RELATED TO HIS OBSTRUCTIVE, SLEEP APNEA AND NOW THAT HE SHE IS USING IT REGULARLY IT SHOULD BE TAKEN CARE OF. Code(s): G47.34 - Idiopathic sleep related nonobstructive alveolar hypoventilation Category: Medical Plan: CONTINUE TO USE BIPAP REGULARLY (4) Periodic limb movements of sleep: Comment: VERY FREQUENT LIMB MOVEMENTS WERE NOTED DURING THE CPAP TITRATION PROCESS. HE DENIES ANY PAIN OR DISCOMFORT AT NIGHT, SO I THINK THE LIMB MOVEMENT DISORDER HAS RESOLVED TO A GREAT EXTENT. Code(s): G47.61 - Periodic limb movement disorder Category: Medical Plan: NO SPECIFIC TREATMENT NEEDED Coding Level of Care Code Est Pt Level 3 (13215) Diagnoses Morbid obesity with BMI of 50.0-59.9, adult E66.01; Z68.43 BASIM (obstructive sleep apnea) G47.33 Nocturnal hypoxemia G47.34 Periodic limb movements of sleep G47.61
== END 2024-02-25 13:53 | disposition home or self-care (01) ==
PROVIDERS: PCP Internal Medicine; Visit Provider Internal Medicine
DX: E66.01 Morbid (severe) obesity due to excess calories (principal); Z68.43 Body mass index [BMI] 50.0-59.9, adult; G47.33 Obstructive sleep apnea (adult) (pediatric); G47.34 Idiopathic sleep related nonobstructive alveolar hypoventilation; G47.61 Periodic limb movement disorder
CPT/HCPCS: 99213

== ENCOUNTER → 2024-02-25 13:22 | Outpatient (BNVA) | payer OTHER, SELFPAY | PROVIDERS: PCP Internal Medicine; Visit Provider Internal Medicine | DX: G47.33 Obstructive sleep apnea (adult) (pediatric) (principal); G47.34 Idiopathic sleep related nonobstructive alveolar hypoventilation; G47.61 Periodic limb movement disorder; E66.01 Morbid (severe) obesity due to excess calories; Z68.43 Body mass index [BMI] 50.0-59.9, adult | CPT/HCPCS: 99212 ==

== ENCOUNTER 2024-03-03 10:22 | Outpatient (AMB) | payer OTHER, SELFPAY ==
--- NOTE | 2024-03-03 11:02 | A.OFFVIS_ITS ---
Intake Visit Reasons: 6m/US(set) Intake Note: Patient presents today for follow up on: kidney stone and ultrasound results Imaging Completed: 02/24/24 Urology Medications: vitamin B6 Blood Thinner: none Practice Billing Associate Required: No Accompanied by: Self / Same As Patient Allergies No Known Allergies [No Known Allergies*] Allergy (Verified 03/03/24 21:58) Medication List - Last Reconciled 03/03/24 by AYAAN Flor loratadine 10 mg PO DAILY losartan 25 mg PO DAILY pyridoxine (vitamin B6) 50 mg PO DAILY 90 days sertraline 75 mg PO DAILY simvastatin 10 mg PO DAILY trazodone 75 - 100 mg PO BEDTIME HPI Comments Details: Greg is a pleasant 58-year-old male patient of Dr. Savage. He has a past medical history of STACY, PTSD, seasonal allergies, arthritis, elevated cholesterol, depression, and obesity. He presents to the office today for a follow up of his nephrolithiasis. When asked patient reports to be doing and feeling well. Recent unofficial renal imaging results reviewed with the patient today. Bilateral kidneys with no hydronephrosis or nephrolithiasis noted however extremely limited exam due to body habitus. In discussion with the patient today reports to be doing and feeling well. He discusses approximately 2 months ago feeling as he had potentially been passing as he had been experiencing left- sided flank pain however symptoms subsided after 2-3 days. He currently denies any bothersome urinary issues or concerns. He denies urinary urgency, urinary frequency, incontinence, nocturia, hematuria, dysuria, foul smelling urine, zhang ges to urinary stream, flank pain, fever, and or chills. Discussed, educated, instructed on the importance of drinking adequate amount of fluid daily. Patient reports compliance with vitamin B6 an adding 1 oz of lemon juice to water daily. When asked he reports typically following up with his PCP for his PSAs. He otherwise offers no other issues or concerns at this time. In review of patient's chart PSAs are as follows: 07/28 2.5, 08/28 2.2 PFSH Medical History Periodic limb movements of sleep Nocturnal hypoxemia STACY (obstructive sleep apnea) STACY (obstructive sleep apnea) PTSD (post-traumatic stress disorder) Seasonal allergic rhinitis History of kidney stones Arthritis of knee Snores Elevated cholesterol Supraumbilical hernia Depression Morbid obesity with BMI of 50.0-59.9, adult Morbid obesity Surgical History History of cystoscopy History of lithotripsy History of umbilical hernia repair Family History Mother Cancer of kidney Social History Patient Tobacco Use Status: Former Tobacco user Review of Systems Const Reports as per HPI Eyes Reports no additional complaints ENT Reports no additional complaints Card Reports as per HPI Resp Reports as per HPI GI Reports no additional complaints Reports as per HPI Musc Reports as per HPI Neuro Reports no additional complaints Psych Reports as per HPI Endo Reports no additional complaints Patrice/Lymph Reports no additional complaints Aller/Immun Reports no additional complaints Physical Exam Const General: cooperative, healthy appearing, comfortable, no acute distress, well developed, alert and awake Nutritional Appearance: obese Orientation/consciousness: patient oriented x3 Limitations: no limitations HEENT Head: Yes normal to inspection, Yes normocephalic and Yes atraumatic Ears: hearing grossly normal bilaterally Neck Neck: Yes normal visual inspection and Yes trachea midline Chest Chest palpation & inspection: normal inspection of the chest Resp Effort & Inspection: normal respiratory effort and able to speak in complete sentences Cardio Rate: regular rate GI Inspection: Yes normal to inspection General: Yes no CVA tenderness Back/Spine/Pelvis Back: no CVA tenderness Neuro General: patient oriented x3 Extrem General: Yes normal to inspection Psych Appearance: grossly normal Mental Status: mental status grossly normal Speech and movement: Normal speech and movement present and Clear speech present Affect: normal affect Attitude: cooperative Thought process: Normal thought process present Thought content: Normal thought content present Insight: Fair insight present (Psych) Judgement: Fair judgement present (Psych) Assessment & Plan Assessment & Plan (1) Calculus, renal: Code(s): N20.0 - Calculus of kidney Category: Medical Plan Recent renal imaging results reviewed with the patient today; as noted above Patient denies any urinary issues or concerns at this time Continue vitamin B6 as prescribed in discussed Continue drinking adequate amount of fluid daily and adding 1 oz of lemon juice daily Renal ultrasound in 6 months Will obtain PSA for further assessment evaluation; surveillance monitoring Follow-up in 6 months with imaging to be completed prior; or sooner with any questions, concerns, and or issues. Orders: Orders 2 US renal BI 6 Months N20.0 - Calculus of kidney Prostate Specific Antigen 03/03/24 N40.0 - Benign prostatic hyperplasia without lower urinary tract symptoms Patient Instructions: The patient had an opportunity to ask questions regarding the treatment plan. All questions were answered. Physical exam, labs, and imaging were discussed and reviewed in detail. As well as risks, benefits, and discussion of treatment choices. No major barriers to understanding were identified. The patient expressed understanding and agreement with the above treatment plan. The patient was made aware they should contact our office by phone for worsening of their current condition, the appearance of new symptoms, or with any questions or concerns. Compliance is encouraged with any medications and follow up testing that is ordered. It is a privilege to be allowed the opportunity to participate in? your urological care.? Again, if you have any questions or concerns If you have any questions or concerns please do not hesitate to contact me. The office is [phone]. This note is constructed using voice recognition software. While every effort has been made to ensure accuracy strike operations officer errors may have been included. Yours sincerely, AYAAN Flor Coding Level of Care Code Est Pt Level 3 (23451) Diagnoses Calculus, renal N20.0
== END 2024-03-03 11:00 | disposition home or self-care (01) ==
PROVIDERS: PCP Internal Medicine; Visit Provider Nurse Practitioner Family
DX: N20.0 Calculus of kidney (principal)
CPT/HCPCS: 99213

== ENCOUNTER → 2024-03-03 10:22 | Outpatient (BNVA) | payer OTHER, SELFPAY | PROVIDERS: PCP Internal Medicine; Visit Provider Nurse Practitioner Family | DX: N20.0 Calculus of kidney (principal); N40.0 Benign prostatic hyperplasia without lower urinary tract symptoms | CPT/HCPCS: 99212 ==

== ENCOUNTER 2024-08-19 10:12 | Outpatient (REF) | payer OTHER, SELFPAY ==
--- NOTE | ~2024-08-19 | US_ITS ---
CLINICAL HISTORY: N20.0 - Calculus of kidney US Renal Comparison: US/SR - US RENAL BI - 02/24/24 10:04 EST Findings: Right kidney normal size and echotexture, 11.5 cm length. Left kidney normal size and echotexture, 12.4 cm length. Questionable 3 mm calculus in the upper pole No hydronephrosis of either kidney. Normal color Doppler IMPRESSION: 1. Questionable 3 mm calculus upper pole left kidney. This document has been electronically signed by: Pepito Little MD on 08/20/2024 08:21:54
--- OUTSIDE RECORDS SUMMARY | 2024-08-19 11:14 | XMS_ITS | Patient Health Record ---
Author Organization [facility] Address [address] [place] [address] Care Team Providers Care Assistant Research Scientist Name Role Phone Jimenez Savage MD Primary Care Provider Ethan Bray Jr Unavailable [phone] Allergies Allergen (clinical drug ingredient) Drug/Non Drug Allergy documented on EMR Reaction Allergy Type Onset Date Status environmental (uncoded) Unknown Allergy Active Reason For Referral No Information Medications Medication SIG (Take, Route, Frequency, Duration) Notes Start Date End Date Status traZODone HCl 100 MG 1 tablet at bedtime Orally Once a day for 30 day(s) as needed Active ZyrTEC Active MiraLax (colon prep) 17 GM/SCOOP mixed with Gatorade or Crystal Light Orally begin at 5:00 p.m. the day before the procedure for 1 day 09/25/2021 Active Zoloft 100 MG 1 tablet Orally Once a day for 30 day(s) 09/25/2021 Active Immunizations Vaccine Route Administration Date Status Comme nts Influenza Unknown 01/24/2021 Administered Social History Tobacco Use: Social History Observation Description Date Details (start date - stop date) Never Smoker NA - NA Tobacco Use/Smoking Question Answer Notes Patient is a nonsmoker Alcohol Screen Question Answer Notes Did you have a drink containing alcohol in the p ast year? No Points 0 Interpretation Negative Problems Problem Type SNOMED Code ICD Code Onset Dates Problem Status W/U Status Risk Notes Problem [id number] Colon cancer screening (Z12.11) Active confirmed Problem [id number] Encounter for other preprocedural examination (Z01.818) Active confirmed Plan Of Treatment Future Test Test Name Order Date COLONOSCOPY 09/25/2021 Insurance Providers Payer Name Payer Address Payer Phone Subscriber Number Group Number Insured Name Patient Relationship to Insured Coverage Start Date Coverage End Date [facility] [address] [address] [place], [place] [id number] GIAN RIVAS Self - patient is the insured Medical (General) History Medical History History ICD Code Nephrolithiasis Seasonal allergic rhinitis Elevated cholesterol PTSD Elevated BMI Surgical History Surgery Date(Month/Year) Multiple cystoscopies/ESWLs Umbilical hernia repair 2006
== END 2024-08-19 10:13 | disposition home or self-care (01) ==
LOC: HO.US 10:12
PROVIDERS: PCP Internal Medicine; Visit Provider Nurse Practitioner Family
DX: N20.0 Calculus of kidney (principal)
CPT/HCPCS: 76775

== ENCOUNTER → 2024-08-19 10:14 | Outpatient (BNV) | payer OTHER, SELFPAY | PROVIDERS: PCP Internal Medicine; Visit Provider Radiology Diagnostic Radiology | DX: N20.0 Calculus of kidney (principal) | CPT/HCPCS: 76775 ==

== ENCOUNTER 2024-09-01 10:19 | Outpatient (AMB) | payer OTHER, SELFPAY ==
--- NOTE | 2024-09-01 10:54 | A.OFFVIS_ITS ---
Intake Visit Reasons: 6m/US(set) Intake Note: Patient presents today for follow up on: kidney stone and ultrasound results Imaging Completed: 08/19/24 Urology Medications: vitamin B6 Blood Thinner: none Nail Assembly Machine Operator Required: No Accompanied by: Self / Same As Patient Allergies No Known Allergies [No Known Allergies*] Allergy (Verified 03/03/24 21:58) Medication List - Last Reconciled 09/01/24 by AYAAN Flor loratadine 10 mg PO DAILY losartan 25 mg PO DAILY prazosin mg PO pyridoxine (vitamin B6) 50 mg PO DAILY 90 days sertraline 75 mg PO DAILY simvastatin 10 mg PO DAILY trazodone 75 - 100 mg (1.5 - 2 x 50 mg) PO BEDTIME HPI Comments Details: Greg is a pleasant 58-year-old male patient of Dr. Jenkins. He has a past medical history of STACY, PTSD, seasonal allergies, arthritis, elevated cholesterol, depression, and obesity. He presents to the office today for a follow up of his nephrolithiasis. Recent renal imaging 08/30 bilateral kidneys are normal in size and echotexture. Questionable 3 mm calculus in the upper pole of the left kidney. No hydronephrosis of either kidney. He does report intermittent episodes of left-sided flank pain however describes these episodes as infrequent and not bothersome. He currently denies any bothersome urinary issues or concerns. He denies urinary urgency, urinary frequency, incontinence, nocturia, hematuria, dysuria, foul smelling urine, changes to urinary stream, flank pain, fever, and or chills. Discussed, educated, instructed on the importance of drinking adequate amount of fluid daily. Patient reports compliance with vitamin B6 an adding 1 oz of lemon juice to water daily. When asked he reports typically following up with his PCP for his PSAs however his PCP Dr. Savage has since retired and will be establishing care with his new PCP. He otherwise offers no other issues or concerns at this time. In review of patient's chart PSAs are as follows: 07/28 2.5, 08/28 2.2 [facility] Medical History HLD (hyperlipidemia) HTN (hypertension) Periodic limb movements of sleep Nocturnal hypoxemia STACY (obstructive sleep apnea) STACY (obstructive sleep apnea) PTSD (post-traumatic stress disorder) Seasonal allergic rhinitis History of kidney stones Arthritis of knee Snores Elevated cholesterol Supraumbilical hernia Depression Morbid obesity with BMI of 50.0-59.9, adult Morbid obesity Surgical History History of cystoscopy History of lithotripsy History of umbilical hernia repair Family History Mother Cancer of kidney Social History Patient Tobacco Use Status: Former Tobacco user Review of Systems Const Reports as per HPI Eyes Reports no additional complaints ENT Reports no additional complaints Card Reports as per HPI Resp Reports as per HPI GI Reports no additional complaints Reports as per HPI Musc Reports as per HPI Neuro Reports no additional complaints Psych Reports as per HPI Endo Reports no additional complaints Patrice/Lymph Reports no additional complaints Aller/Immun Reports no additional complaints Physical Exam Const General: cooperative, healthy appearing, comfortable, no acute distress, well developed, alert and awake Nutritional Appearance: obese Orientation/consciousness: patient oriented x3 Limitations: no limitations HEENT Head: Yes normal to inspection, Yes normocephalic and Yes atraumatic Ears: hearing grossly normal bilaterally Neck Neck: Yes normal visual inspection and Yes trachea midline Chest Chest palpation & inspection: normal inspection of the chest Resp Effort & Inspection: normal respiratory effort and able to speak in complete sentences Cardio Rate: regular rate GI Inspection: Yes normal to inspection General: Yes no CVA tenderness Back/Spine/Pelvis Back: no CVA tenderness Neuro General: patient oriented x3 Extrem General: Yes normal to inspection Psych Appearance: grossly normal Mental Status: mental status grossly normal Speech and movement: Normal speech and movement present and Clear speech present Affect: normal affect Attitude: cooperative Thought process: Normal thought process present Thought content: Normal thought content present Insight: Fair insight present (Psych) Judgement: Fair judgement present (Psych) Results AMB Urinalysis, Automated UA Leukoctes 0 Toño/uL Last Edit by Henrietta Means on 09/01/24 11:10 UA Nitrite Negative Last Edit by Karo [employer] Means on 09/01/24 11:10 UA Urobilinogen 0.2 mg/dL Last Edit by [employer] Means on 09/01/24 11:10 UA Protein 0 mg/dL Last Edit by [employer] on 09/01/24 11:10 UA pH 6.0 Last Edit by [employer] on 09/01/24 11:10 UA Blood 0 Audie/uL Last Edit by [employer]olynn on 09/01/24 11:10 UA Specific [place] 1.020 Last Edit by [employer] on 09/01/24 11:10 UA Ketone Negative Last Edit by [employer] on 09/01/24 11:10 UA Bilirubin 0 mg/dL Last Edit by [employer] on 09/01/24 11:10 UA Glucose 0 mg/dL Last Edit by [employer] on 09/01/24 11:10 Results Reviewed Results Reviewed: Laboratory Last Values Urine pH (Auto) 6.0 09/01/24 10:59 Specific [place] (Auto) 1.020 09/01/24 10:59 Urine Protein (Auto) 0 mg/dL 09/01/24 10:59 Glucose (UA)(Auto) 0 mg/dL 09/01/24 10:59 Urine Ketones (Auto) Negative 09/01/24 10:59 Urine Blood (Auto) 0 Audie/uL 09/01/24 10:59 Urine Nitrite (Auto) Negative 09/01/24 10:59 Urine Bilirubin (Auto) 0 mg/dL 09/01/24 10:59 Urine Urobilinogen (Auto) 0.2 mg/dL 09/01/24 10:59 Leukocyte Esterase (Auto) 0 Toño/uL 09/01/24 10:59 Date of Service: 08/19/24 Procedure(s): US renal BI US Renal Comparison: US/SR - US RENAL BI - 02/24/24 10:04 EST Findings: Right kidney normal size and echotexture, 11.5 cm length. Left kidney normal size and echotexture, 12.4 cm length. Questionable 3 mm calculus in the upper pole No hydronephrosis of either kidney. Normal color Doppler IMPRESSION: 1. Questionable 3 mm calculus upper pole left kidney. Assessment & Plan Assessment & Plan (1) Calculus, renal: Code(s): N20.0 - Calculus of kidney Category: Medical Plan In office urinalysis results reviewed with the patient today; as noted above. Recent renal imaging results reviewed with the patient today; as noted above. Will obtain PSA for further assessment evaluation. We discussed the importance of adequate hydration relation to nephrolithiasis as well as overall health and well-being. Continue vitamin B6. Continue adding 1 oz of lemon juice to water daily. We discussed further workup to include Litholink. Will continue with surveillance monitoring at this time. He currently denies any bothersome urinary issues. He reports be happy with current voiding parameters. Will obtain renal ultrasound in 6 months. Follow-up in 6 months with imaging and lab to be completed prior; or sooner with any issues, concerns, and or questions. Orders: Orders AMB Urinalysis Automated Today Z13.9 - Encounter for screening, unspecified Prostate Specific Antigen Today N40.0 - Benign prostatic hyperplasia without lower urinary tract symptoms US renal BI 6 Months N20.0 - Calculus of kidney Patient Instructions: The patient had an opportunity to ask questions regarding the treatment plan. All questions were answered. Physical exam, labs, and imaging were discussed and reviewed in detail. As well as risks, benefits, and discussion of treatment choices. No major barriers to understanding were identified. The patient expressed understanding and agreement with the above treatment plan. The patient was made aware they should contact our office by phone for worsening of their current condition, the appearance of new symptoms, or with any questions or concerns. Compliance is encouraged with any medications and follow up testing that is ordered. It is a privilege to be allowed the opportunity to participate in? your urological care.? Again, if you have any questions or concerns If you have any questions or concerns please do not hesitate to contact me. The office is [phone]. This note is constructed using voice recognition software. While every effort has been made to ensure accuracy rotational moulding operator errors may have been included. Yours sincerely, AYAAN Flor Coding Level of Care Code Est Pt Level 3 (52304) Diagnoses Calculus, renal N20.0
--- OUTSIDE RECORDS SUMMARY | 2024-09-01 11:06 | XMS_ITS | Patient Health Record ---
Author Organization [facility] Address [address] [place] [address] Care Team Providers Care Media Relations Director Name Role Phone Jimenez Savage MD Primary Care Provider Ethan Bray Jr Unavailable Allergies Allergen (clinical drug ingredient) Drug/Non Drug [...] Problem Status W/U Status Risk Notes Problem [id number] Colon cancer screening (Z12.11) Active confirmed Problem [id number] Encounter for other preprocedural examination (Z01.818) Active confirmed Plan Of Treatment Future Test Test Name Order Date COLONOSCOPY 09/25/2021 Insurance Providers Payer Name Payer Address Payer Phone Subscriber Number Group Number Insured Name Patient Relationship to Insured Coverage Start Date Coverage End Date [facility] [address] [address] [place], [place] [id number] GIAN RIVAS Self - patient is the insured Medical (General) History Medical History History ICD Code Nephrolithiasis Seasonal allergic rhinitis Elevated cholesterol PTSD Elevated BMI Surgical History Surgery Date(Month/Year) Multiple cystoscopies/ESWLs Umbilical hernia repair 2006
== END 2024-09-01 11:27 | disposition home or self-care (01) ==
LOC: HO.HUSH 10:20
PROVIDERS: PCP Internal Medicine; Visit Provider Nurse Practitioner Family
DX: Z13.9 Encounter for screening, unspecified (principal); N20.0 Calculus of kidney
CPT/HCPCS: 99213

== ENCOUNTER → 2024-09-01 10:19 | Outpatient (BNVA) | payer OTHER, SELFPAY | PROVIDERS: PCP Internal Medicine; Visit Provider Nurse Practitioner Family | DX: N20.0 Calculus of kidney (principal) | CPT/HCPCS: 81003; 99212 ==

== ENCOUNTER 2024-09-07 11:05 | Outpatient (AMB) | payer OTHER, SELFPAY ==
[2024-09-07 11:01] VITALS: BP 112/70; PULSE 85; TEMP 36.6; O2SAT 98; BMI 55.8
--- NOTE | 2024-09-07 11:01 | A.OFFPC_ITS ---
Vital Signs 09/07/24 11:01 Height 5 ft 10 in Weight 389 lb BMI 55.8 BP 112/70 Blood Pressure Location Lt brachial Position Sitting Pulse 85 Pulse Source Pulse Oximeter Temp 98 F Temp Source Axillary Pulse Oximetry (%) 98 Oxygen Delivery Method Room Air Intake Visit Reasons: Routine - see comments Barrel Rifler Broach Required: No Accompanied by: Self / Same As Patient Allergies No Known Allergies [No Known Allergies*] Allergy (Verified 09/07/24 11:27) Tobacco use date assessed: 09/07/24 Dental Screening Dental Screen Date: 09/07/24 Did you have a dental visit in the last 12 months?: No Did you have a dental problem in the last 6 months where you did not have access to dental care?: No PFSH Medical History HLD (hyperlipidemia) HTN (hypertension) Periodic limb movements of sleep Nocturnal hypoxemia STACY (obstructive sleep apnea) STACY (obstructive sleep apnea) PTSD (post-traumatic stress disorder) Seasonal allergic rhinitis History of kidney stones Arthritis of knee Snores Elevated cholesterol Supraumbilical hernia Depression Morbid obesity with BMI of 50.0-59.9, adult Morbid obesity Surgical History History of cystoscopy History of lithotripsy History of umbilical hernia repair Family History (Updated 09/07/24 @ 11:32 by Leni Worthington MA) Mother Cancer of kidney Mother No problems noted. Father No problems noted. Social History Housing: House Patient Tobacco Use Status: Former Tobacco user e-Cigarette/Vaping Use: Former Use service: No Current occupational status: retired Cognitive needs: No Hearing needs: No Vision needs: Yes (rx glasses) Questionnaire PHQ-9 Over the last 2 weeks, how often have you been bothered by any of the following problems? 1. Little interest or pleasure in doing things: not at all 2. Feeling down, depressed, or hopeless: nearly every day 3. Trouble falling or staying asleep, or sleeping too much: nearly every day 4. Feeling tired or having little energy: not at all 5. Poor appetite or overeating: nearly every day 6. Feeling bad about yourself - or that you are a failure or have let yourself or your family down: not at all 7. Trouble concentrating on things, such as reading the newspaper or watching television: not at all 8. Moving or speaking so slowly that other people could have noticed. Or the opposite - being so fidgety or restless that you have been moving around a lot more than usual: not at all 9. Thoughts that you would be better off or of hurting yourself in some way: not at all Total score: 9 Source: Developed by Drs. Greg Deng, Yue Boyd, Waldo Nieves and colleagues, with an educational araseli from [employer]. Thrive Questionnaire Date Thrive assessed: 09/07/24 I am a: Patient Within the past 12 months, did the food you bought not last and you didn't have the money to get more?: Never true Within the past 12 months, did you worry whether your food would run out before you got money to buy more?: Never true Do you have trouble paying for medicines?: No Do you have trouble getting transportation to medical appointments?: No Do you have trouble paying your heating and electricity bill?: No Do you have trouble taking care of your child, family member or friend?: No Do you have trouble with day-to-day activities such as bathing, preparing meals, shopping, managing finances, etc.?: No Are you currently unemployed and looking for a job?: No Are you interested in more education?: No THRIVE Score: 0 AUDIT C Alcohol Use Questionnaire (AUDIT-C) 1. How often do you have a drink containing alcohol?: Never 3. How often do you have six or more drinks on one occasion?: Never Total Score: 0 ALISSA-7 AMB Questionnaire ALISSA-7 Date ALISSA - 7 assessed: 09/07/24 Feeling nervous, anxious, or on edge: 3 = Nearly every day Not being able to stop or control worryin = Not at all Worrying too much about different things: 3 = Nearly every day Trouble relaxin = Not at all Being so restless that it is hard to sit still: 0 = Not at all Becoming easily annoyed or irritable: 0 = Not at all Feeling afraid as if something awful might happen: 0 = Not at all Total ALISSA-7 score (0-4 normal; 5-9 mild; 10-14 moderate; 15-21 severe): 6 Source: Developed by Drs. Greg Deng, Yue Boyd, Waldo Nieves and colleagues, with an educational araseli from [employer]. Physical exam (Primary Care) Vital Signs: Last Vital Signs Temp 98 F 09/07/24 11:01 Pulse 85 09/07/24 11:01 BP 112/70 09/07/24 11:01 Pulse Ox 98 09/07/24 11:01 Oxygen Delivery Method Room Air 09/07/24 11:01 BMI result Body Mass Index 55.8 Tobacco/Smoking Status: Tobacco use Status Tobacco use date assessed 09/07/24 09/07/24 11:03 Patient Tobacco Use Status Former Tobacco user 09/07/24 11:03 e-Cigarette/Vaping Use Former Use 09/07/24 11:03 PHQ-9: PHQ-9 Score PHQ-9: Total score 9 09/07/24 11:34 Thrive Assessment: Date of Thrive Assessment Date Thrive assessed 09/07/24 09/07/24 11:03 Coding Level of Care Code New Pt Level 4 (86649) Complex EM visit Add On G2211 Diagnoses Morbid obesity with BMI of 50.0-59.9, adult E66.01; Z68.43 HTN (hypertension) I10 Depression F32.A Assessment & Plan Assessment & Plan (1) Morbid obesity with BMI of 50.0-59.9, adult: Comment: HE IS FULLY AWARE OF IT AND IS TRYING TO LOSE WEIGHT SLOWLY. HE TELLS ME THAT HIS ONGOING DEPRESSION AND ERRATIC SCHEDULE OF EATING IS WHAT MAKES HIM PUT ON WEIGHT. Code(s): E66.01 - Morbid (severe) obesity due to excess calories; Z68.43 - Body mass index [BMI] 50.0-59.9, adult Category: Medical Plan: as above (2) HTN (hypertension): Code(s): I10 - Essential (primary) hypertension Category: Medical Plan: BP in range (3) Depression: Code(s): F32.A - Depression, unspecified Category: Medical Plan: Cannot see his current therapist (she has left [facility]), Has a psychiatrist at [facility] who is prescribing meds Plan History of Present Illness - The patient is a 58-year-old male presenting for primary care follow-up. - Obesity: Despite ongoing efforts, the patient struggles with weight management and refrains from using medication for this purpose. - Depression: The patient is attempting to re-establish therapy sessions after his therapist's change in employment and is currently under psychiatric care. - Osteoarthritis: Complaints of arthritis in his knees with specific concern about a tendon issue which is perceived as part of the arthritis. - Diabetes Mellitus: The patient is experiencing profound diabetes but abstains from weight loss medications due to ethical concerns regarding medication supply. 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 - Resides with and provides care for his mother. - Does not consume alcohol. He has abstained for four years due to depression. - Stopped smoking in 1992. Review of Systems - Musculoskeletal: Reports arthritis in knees and concerns about tendon issues. - Psychiatric: Reports ongoing depression. - Endocrine: Reports profound diabetes. - General: Reports difficulty with weight management. - Hematologic/Immunologic: Denies any other systemic issues. - Neurologic: Denies seizures, headaches, or other neurological symptoms. Physical Exam General: Cooperative and healthy appearing Nutritional Appearance: Well nourished Orientation/consciousness: Patient oriented x3 Limitations: No limitations Head: Normal to inspection General: Appearance normal, both eyes and all related structures Neck: Normal visual inspection Chest: Normal palpation of entire chest wall Respiratory: All good ormal respiratory effort Neurology: Patient oriented x3 Results Plan 1. Obesity - Continues self-management without medication due to ethical concerns. 2. Major Depressive Disorder - Medication regimen with trazodone and sertraline remains unchanged. - Plans to re-initiate therapy sessions with previous therapist in a new practice. 3. Osteoarthritis, Knees - Patient educated that tendon issues are part of arthritis. Discussion Notes During this visit, we discussed the patient's current health conditions, including obesity, depression, arthritis, and diabetes. The patient expressed concerns about weight management without medication due to ethical concerns, respecting his perspective while encouraging ongoing efforts in lifestyle management. Depression management continues under the oversight of Dr. Sanchez, and options for therapy continued to be supported as he transitions with his therapist. Concerns regarding arthritis as potentially exacerbated by a moving tendon were clarified to be a typical condition associated with OA. For diabetes management, I arranged for his fasting blood work to monitor diabetic control. Patient Instructions - Follow up with blood work as ordered, ensuring adherence to fasting guidelines. - Continue with current psychiatric management including medication. - Engage with therapist as they establish private practice. - Maintain current regimen for managing arthritis in knees. - Continue abstaining from alcohol and tobacco. - Return for follow-up in six months or sooner if new concerns arise. Orders: Orders Basic Metabolic Panel Today E66.01 - Morbid (severe) obesity due to excess calories, F32.A - Depression, unspecified, I10 - Essential (primary) hypertension, Z68.43 - Body mass index [BMI] 50.0-59.9, adult Lipid Panel Today E66.01 - Morbid (severe) obesity due to excess calories, F32.A - Depression, unspecified, I10 - Essential (primary) hypertension, Z68.43 - Body mass index [BMI] 50.0-59.9, adult Liver Panel Today E66.01 - Morbid (severe) obesity due to excess calories, F32.A - Depression, unspecified, I10 - Essential (primary) hypertension, Z68.43 - Body mass index [BMI] 50.0-59.9, adult Thyroid Stimulating Hormone Today E66.01 - Morbid (severe) obesity due to excess calories, F32.A - Depression, unspecified, I10 - Essential (primary) hypertension, Z68.43 - Body mass index [BMI] 50.0-59.9, adult Complete Blood Count no Diff Today E66.01 - Morbid (severe) obesity due to exce ss calories, F32.A - Depression, unspecified, I10 - Essential (primary) hypertension, Z68.43 - Body mass index [BMI] 50.0-59.9, adult UA and rflx microscopic Today E66.01 - Morbid (severe) obesity due to excess calories, F32.A - Depression, unspecified, I10 - Essential (primary) hypertension, Z68.43 - Body mass index [BMI] 50.0-59.9, adult
--- OUTSIDE RECORDS SUMMARY | 2024-09-07 12:22 | XMS_ITS | Patient Health Record ---
Author Organization [facility] Address [address] [place] [address] Care Team Providers Care Supervisor Fabrication And Assembly Name Role Phone Jimenez Savage MD Primary [...] Problem Status W/U Status Risk Notes Problem [id number] Colon cancer screening (Z12.11) Active confirmed Problem [id number] Encounter for other preprocedural examination (Z01.818) Active confirmed Plan Of Treatment Future Test Test Name Order Date COLONOSCOPY 09/25/2021 Insurance Providers Payer Name Payer Address Payer Phone Subscriber Number Group Number Insured Name Patient Relationship to Insured Coverage Start Date Coverage End Date [facility] [address] [address] [place], [place] [id number] GIAN RIVAS Self - patient is the insured Medical (General) History Medical History History ICD Code Nephrolithiasis Seasonal allergic rhinitis Elevated cholesterol PTSD Elevated BMI Surgical History Surgery Date(Month/Year) Multiple cystoscopies/ESWLs Umbilical hernia repair 2006
== END 2024-09-07 11:54 | disposition home or self-care (01) ==
LOC: HO.HMCHD 11:07
PROVIDERS: PCP Internal Medicine; Visit Provider Internal Medicine
DX: E66.01 Morbid (severe) obesity due to excess calories (principal); Z68.43 Body mass index [BMI] 50.0-59.9, adult; I10 Essential (primary) hypertension; F32.A Depression, unspecified

== ENCOUNTER → 2024-09-07 11:05 | Outpatient (BNVA) | payer OTHER, SELFPAY | PROVIDERS: PCP Internal Medicine; Visit Provider Internal Medicine | DX: E66.01 Morbid (severe) obesity due to excess calories (principal); I10 Essential (primary) hypertension; F32.A Depression, unspecified; Z68.43 Body mass index [BMI] 50.0-59.9, adult | CPT/HCPCS: 99202 ==

== ENCOUNTER 2024-09-09 15:23 | Outpatient (AMB) | payer OTHER, SELFPAY ==
[2024-09-09 15:28] VITALS: BP 140/82; PULSE 76; O2SAT 97; BMI 55.8
--- NOTE | 2024-09-09 15:28 | MHC.OFFVIS ---
Vital Signs 09/09/24 15:28 Height 5 ft 10 in Weight 389 lb BMI 55.8 BP 140/82 H Blood Pressure Location Lt brachial Position Sitting Pulse 76 Pulse Source Pulse Oximeter Pulse Oximetry (%) 97 Oxygen Delivery Method Room Air Intake Visit Reasons: stacy Intake Note: pt is here for follow up and states he is using the cpap, sent in [facility], regional is looking for this. 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 AND OBSTRUCTIVE SLEEP APNEA. HE USES BIPAP MODE EVERY NIGHT, BECAUSE WITHOUT THAT HE JUST CAN NOT SLEEP. HE CLAIMS TO BE COMPLIANT 100%. GETS GOOD SLEEP FOR 6-8 HOURS AT NIGHT. THIS TIME HIS MACHINE DOES NOT REGISTER THE COMPLIANCE , AND HE HAD TO SEND IN THE CHIP. BUT GOING BY HIS STATEMENT HE IS VERY COMPLIANT. HE IS INTO MEDITATION AND DOES 2 OR 3 TIMES DURING THE DAY [facility] Medical History HLD (hyperlipidemia) HTN (hypertension) Periodic limb movements of sleep Nocturnal hypoxemia STACY (obstructive sleep apnea) STACY (obstructive sleep apnea) PTSD (post-traumatic stress disorder) Seasonal allergic rhinitis History of kidney stones Arthritis of knee Snores Elevated cholesterol Supraumbilical hernia Depression Morbid obesity with BMI of 50.0-59.9, adult Morbid obesity Surgical History History of cystoscopy History of lithotripsy History of umbilical hernia repair Family History Mother Cancer of kidney Mother No problems noted. Father No problems noted. Social History Housing: House Patient Tobacco Use Status: Former Tobacco user e-Cigarette/Vaping Use: Former Use service: No Current occupational status: retired Cognitive needs: No Hearing needs: No Vision needs: Yes (rx glasses) Review of Systems Const All systems reviewed & are unremarkable except as noted in HPI and below Eyes Reports no additional complaints ENT Reports nasal congestion (Mild intermittent) Card Denies chest pain, Denies irregular heart rhythm, Denies leg edema and Reports dyspnea Resp Reports cough, Reports dyspnea and Reports wheezing GI Reports no additional complaints Reports no additional complaints Musc Reports no additional complaints Skin/Breast Reports system reviewed and no additional complaints, except as documented Neuro Reports no additional complaints Psych Reports no additional complaints Endo Reports no additional complaints Patrice/Lymph Reports no additional complaints Aller/Immun Reports no additional complaints and Reports wheezing Physical Exam Vital Signs: Last Vital Signs Pulse 76 09/09/24 15:28 BP 140/82 H 09/09/24 15:28 Pulse Ox 97 09/09/24 15:28 Oxygen Delivery Method Room Air 09/09/24 15:28 BMI result Body Mass Index 55.8 Const Other: Super obese, BMI 58 General: comfortable, no acute distress, alert and awake Orientation/consciousness: patient oriented x3 HEENT Head: Yes normal to inspection General nose exam: No nasal polyps present and No nasal discharge present Face and sinus: Yes sinuses nontender Mouth: oropharynx normal Throat: No posterior oropharynx normal (Narrow and crowded, Mallampati scale 4) Eyes General: appearance normal, both eyes and all related structures Neck Other: Large and with a lose skin apron. NECK CIRCUMFERENCE 21 IN. Neck: Yes normal visual inspection, Yes no lymphadenopathy, Yes trachea midline and Yes no JVD Thyroid: Thyroid normal Chest Chest palpation & inspection: normal inspection of the chest, normal palpation of entire chest wall and no tenderness Resp Other: PERCUSSION NOTE NOT PERCEPTIBLE BECAUSE OF OBESITY. BREATH SOUNDS ARE DISTANT ESPECIALLY OVER THE BASILAR AREAS. NO WHEEZES RHONCHI OR CREPITATIONS ARE HEARD. Cardio Palpation: normal PMI Rate: regular rate Rhythm: regular rhythm Heart sounds: no gallops and no murmurs GI Palpation (GI): Soft to palpation, Tenderness to palpation present (GI), No hepatosplenomegaly present, Palpable mass present and Other GI palpation findings present (Abdomen is extremely obese and pendulous, a large firm mass in supra umbili) Auscultation: normal bowel sounds Back/Spine/Pelvis Thoracic/Lumbar Spine: thoracic and lumbar spine normal to inspection and thoraco-lumbar ROM limited Skin General skin exam: no rashes or lesions noted Neuro General: patient oriented x3 and no focal motor deficits Cranial nerves: Yes CN's II-XII intact bilaterally Extrem General: Yes normal to inspection, Yes no calf tenderness and Yes venous stasis dermatitis (1 +) Psych Appearance: grossly normal and well kempt Speech and movement: Normal speech and movement present Assessment & Plan Assessment & Plan (1) Morbid obesity with BMI of 50.0-59.9, adult: Comment: GIAN REMAINS SUPER MORBIDLY OBESE , CURRENT BMI 55.8 HE IS FULLY AWARE OF IT AND IS TRYING TO LOSE WEIGHT SLOWLY. HE TELLS ME THAT HIS ONGOING DEPRESSION AND ERRATIC SCHEDULE OF EATING IS WHAT MAKES HIM PUT ON WEIGHT. Code(s): E66.01 - Morbid (severe) obesity due to excess calories; Z68.43 - Body mass index [BMI] 50.0-59.9, adult Category: Medical Plan: WE HAD A LONG DISCUSSION ABOUT THE WEIGHT REDUCTION. HE CLAIMS THAT HE IS LOSING WEIGHT BUT VERY SLOWLY. HE DOES NOT WANT TO GO TO ANY OTHER OPTIONS FOR WEIGHT REDUCTION. (2) STACY (obstructive sleep apnea): Comment: VERY SEVERE OBSTRUCTIVE SLEEP APNEA ALONG WITH NOCTURNAL HYPOXEMIA. HE IS USING BIPAP / VERY REGULARLY EVERY NIGHT. HE IS FEELING GOOD WITH THE USE OF BIPAP. COMPLIANCE HAS BEEN GOOD. AND WITH THE USE OF BIPAP HIS NOCTURNAL HYPOXEMIA IS CORRECTED. Code(s): G47.33 - Obstructive sleep apnea (adult) (pediatric) Category: Medical Plan: CONTINUE TO USE BIPAP REGULARLY EVERY NIGHT (3) Periodic limb movements of sleep: Comment: VERY FREQUENT LIMB MOVEMENTS WERE NOTED DURING THE CPAP TITRATION PROCESS. HE DENIES ANY PAIN OR DISCOMFORT AT NIGHT, SO I THINK THE LIMB MOVEMENT DISORDER HAS RESOLVED TO A GREAT EXTENT. Code(s): G47.61 - Periodic limb movement disorder Category: Medical Plan: CLINICALLY NO HISTORY OF RESTLESS LEG SYNDROME. (4) Nocturnal hypoxemia: Comment: NOCTURNAL HYPOXEMIA RELATED TO HIS OBSTRUCTIVE, SLEEP APNEA AND NOW THAT HE SHE IS USING IT REGULARLY IT SHOULD BE TAKEN CARE OF. Code(s): G47.34 - Idiopathic sleep related nonobstructive alveolar hypoventilation Category: Medical Plan: CONTINUED USE OF BIPAP HAS RESOLVED HIS HYPOXEMIA Coding Level of Care Code Est Pt Level 3 (29187) Diagnoses Morbid obesity with BMI of 50.0-59.9, adult E66.01; Z68.43 STACY (obstructive sleep apnea) G47.33 Periodic limb movements of sleep G47.61 Nocturnal hypoxemia G47.34
--- OUTSIDE RECORDS SUMMARY | 2024-09-09 15:34 | XMS_ITS | Patient Health Record ---
Author Organization [facility] Address [address] [place] [address] Care Team Providers Care Single End Sewer Name Role Phone Jimenez Savage MD Primary [...] Problem Status W/U Status Risk Notes Problem [id number] Colon cancer screening (Z12.11) Active confirmed Problem [id number] Encounter for other preprocedural examination (Z01.818) Active confirmed Plan Of Treatment Future Test Test Name Order Date COLONOSCOPY 09/25/2021 Insurance Providers Payer Name Payer Address Payer Phone Subscriber Number Group Number Insured Name Patient Relationship to Insured Coverage Start Date Coverage End Date [facility] [address] [address] [place], [place] [id number] GIAN RIVAS Self - patient is the insured Medical (General) History Medical History History ICD Code Nephrolithiasis Seasonal allergic rhinitis Elevated cholesterol PTSD Elevated BMI Surgical History Surgery Date(Month/Year) Multiple cystoscopies/ESWLs Umbilical hernia repair 2006
== END 2024-09-09 15:55 | disposition home or self-care (01) ==
LOC: HO.HPS 15:24
PROVIDERS: PCP Internal Medicine; Visit Provider Internal Medicine
DX: E66.01 Morbid (severe) obesity due to excess calories (principal); Z68.43 Body mass index [BMI] 50.0-59.9, adult; G47.33 Obstructive sleep apnea (adult) (pediatric); G47.61 Periodic limb movement disorder; G47.34 Idiopathic sleep related nonobstructive alveolar hypoventilation
CPT/HCPCS: 99213

== ENCOUNTER → 2024-09-09 15:23 | Outpatient (BNVA) | payer OTHER, SELFPAY | PROVIDERS: PCP Internal Medicine; Visit Provider Internal Medicine | DX: G47.33 Obstructive sleep apnea (adult) (pediatric) (principal); G47.61 Periodic limb movement disorder; G47.34 Idiopathic sleep related nonobstructive alveolar hypoventilation; E66.01 Morbid (severe) obesity due to excess calories; Z68.43 Body mass index [BMI] 50.0-59.9, adult | CPT/HCPCS: 99212 ==

== ENCOUNTER 2025-01-11 10:11 | Outpatient (REF) | payer OTHER, SELFPAY ==
[2025-01-11 11:08] LABS: Hematocrit 42.0 % (42.0-52.0); Hemoglobin 14.1 g/dl (14.0-18.0); Mean Corpuscular HGB Conc 33.6 g/dl (31.0-36.0); Mean Corpuscular Hemoglobin 29.5 pg (27.0-33.0); Mean Corpuscular Volume 87.9 fL (80.0-98.0); NRBC Abs Auto 0.000 X10*3/uL (0.0-0.012); NRBC Pct Auto 0.0 /100WBC (0.0-0.2); Platelet Count 244 X10*3/uL (160-400); Red Blood Count 4.78 X10*6/uL (4.60-5.80); White Blood Count 8.1 X10*3/uL (4.8-10.8)
[2025-01-11 11:32] LABS: Appearance Urine Clear; Glucose Urine UA Negative (Negative); PH 6.0 (5.0-9.0); Specific Gravity - Urine 1.015 (1.005-1.025)
--- OUTSIDE RECORDS SUMMARY | 2025-01-11 11:52 | XMS_ITS | Patient Health Record ---
Author Organization [facility] Address [address] [place] [address] Care Team Providers Care Addiction Treatment Counselor Name Role Phone Hussein (RETIRED) Jimenez MORALEZ Primary Care Provide Ethan Tolliver Jr Unavailable Allergies Allergen (clinical drug ingredient) [...] Problem Status W/U Status Risk Notes Problem [id number] Colon cancer screening (Z12.11) Active confirmed Problem [id number] Encounter for other preprocedural examination (Z01.818) Active confirmed Plan Of Treatment Future Test Test Name Order Date COLONOSCOPY 09/25/2021 Insurance Providers Payer Name Payer Address Payer Phone Subscriber Number Group Number Insured Name Patient Relationship to Insured Coverage Start Date Coverage End Date [facility] [address] [address] [place], [place] [id number] GIAN RIVAS Self - patient is the insured Medical (General) History Medical History History ICD Code Nephrolithiasis Seasonal allergic rhinitis Elevated cholesterol PTSD Elevated BMI Surgical History Surgery Date(Month/Year) Multiple cystoscopies/ESWLs Umbilical hernia repair 2006
[2025-01-11 12:03] LABS: Alanine Aminotransferase 34 U/L (0-40); Albumin Level 4.6 g/dL (3.5-5.0); Alkaline Phosphatase 60 U/L (39-117); Anion Gap 13 (12-20); Aspartate Amino Transferase 29 U/L (5-37); Blood Urea Nitrogen 15 mg/dL (9-16); Calcium 9.6 mg/dL (8.4-10.2); Carbon Dioxide 25 mmol/L (22-29); Chloride 103 mmol/L (96-108); Cholesterol 162 mg/dL (<200); Estimated Glomerular Filt Rate 60; HDL Cholesterol 37 mg/dL (>40); Potassium 4.0 mmol/L (3.3-5.1); Sodium 137 mmol/L (135-145); Total Protein 7.5 g/dL (6.5-8.0); Triglycerides 125 mg/dL (<150)
[2025-01-11 12:20] LABS: Thyroid Stimulating Hormone 4.42 uIU/mL (0.32-4.0)
== END 2025-01-11 10:12 | disposition home or self-care (01) ==
LOC: HO.LAB 10:11
PROVIDERS: PCP Internal Medicine; Visit Provider Internal Medicine
DX: I10 Essential (primary) hypertension (principal); E66.01 Morbid (severe) obesity due to excess calories; Z68.43 Body mass index [BMI] 50.0-59.9, adult; F32.A Depression, unspecified
CPT/HCPCS: 36415; 80048; 80061; 80076; 81003; 84443; 85027

== ENCOUNTER 2025-02-04 08:54 | Outpatient (AMB) | payer OTHER, SELFPAY ==
--- NOTE | 2025-02-04 07:53 | A.OFFPC_ITS ---
Vital Signs 02/04/25 08:59 Height 5 ft 7.44 in Weight 379 lb BMI 58.6 BP 120/74 Blood Pressure Location Lt brachial Position Sitting Respiration 20 Pulse 77 Pulse Source Pulse Oximeter Temp 97.9 F Temp Source Temporal Artery Scan Pulse Oximetry (%) 96 Oxygen Delivery Method Room Air Intake Visit Reasons: To go over blood work [employer]al Required: No Accompanied by: Self / Same As Patient Allergies No Known Allergies (No Known Allergies*) Allergy (Verified 02/04/25 07:53) Medication List - Last Reconciled 02/04/25 by Venancio Cam MD loratadine 10 mg PO DAILY losartan 25 mg PO DAILY prazosin Take 1 to 3 pills daily pyridoxine (vitamin B6) 50 mg PO DAILY 90 days sertraline 150 mg PO DAILY simvastatin 10 mg PO DAILY trazodone 75 - 100 mg (1.5 - 2 x 50 mg) PO BEDTIME Tobacco use date assessed: 09/07/24 Dental Screening Dental Screen Date: 09/07/24 HPI HPI Comments History of Present Illness Details The patient is a 59-year-old male presenting for his first clinic visit for review of recent lab work and health management. He has a history of hypertension and recent labs showed his total cholesterol has increased from 151 to 162 mg/dL and his LDL cholesterol has increased from 87 to 100 mg/dL. His cardiovascular risk for events like heart attacks or strokes is estimated at 10- 11%. The patient has a history of significant weight fluctuation; his weight was once over 400 lbs, and after losing 160 lbs, he regained some weight during the COVID-19 pandemic. His current weight is 379 lbs, down 25 lbs from his highest weight. He has started walking 4-5 times a week, though this is limited by arthritis in his knees. He has sleep apnea and uses his CPAP every night. The patient has a diagnosis of depression, for which he takes sertraline 150 mg. He reports feeling down, slow, and having low motivation, which he attributes to his depression. He also takes prazosin for nightmares and trazodone for sleep, both prescribed by Dr. Sanchez. He is currently seeing a therapist for his depression. His other medical history includes allergies managed with loratadine. He has a significant history of recurrent kidney stones, having had 7 or 8 episodes, and has undergone approximately a dozen operations, including laser and sonic treatments. He reports high fluid intake to prevent further stones. Recent lab work revealed borderline low thyroid function. Medical History: - Hypertension - Hypercholesterolemia - Depression - Nightmares - Insomnia - Allergic rhinitis - Arthritis of the knees - Obesity, with a history of weight reac rohith over 400 lbs and a previous loss of 160 lbs. - Obstructive sleep apnea, compliant wit h CPAP therapy. - Recurrent nephrolithiasis, with a hist ory of 7-8 stones. Surgical History: - Multiple procedures for nephrolithiasi s (approximately 12), including laser lithotripsy and extracorporeal shock wave lithotripsy. Medications: - Loratadine 10 mg daily for allergies - Losartan 25 mg for hypertension - Prazosin for nightmares - Sertraline 150 mg for depression - Simvastatin 10 mg for hypercholesterol emia - Trazodone for sleep Family History: No family history was discussed. Diagnostic Results: - Labs (from 3 weeks prior): - Blood counts: Unremarkable - Electrolytes: Unremarkable - Total cholesterol: 162 mg/dL (previous ly 151 mg/dL) - Bad cholesterol (LDL): 100 mg/dL (prev iously 87 mg/dL) - Thyroid function: Borderline low Social History: - Exercise: The patient has started walk ing 4-5 times per week, limited by knee arthritis. - Weight Management: The patient's curre nt weight is 379 lbs, down from a peak of over 400 lbs. - He previously lost 160 lbs but experie nced weight regain during the COVID-19 pandemic due to inactivity. - Functional Status: Reports depression affects his motivation and energy levels. [facility] Medical History (Updated 02/04/25 @ 09:34 by Venancio Cam MD) Hypothyroidism HLD (hyperlipidemia) HTN (hypertension) Periodic limb movements of sleep Nocturnal hypoxemia STACY (obstructive sleep apnea) STACY (obstructive sleep apnea) PTSD (post-traumatic stress disorder) Seasonal allergic rhinitis History of kidney stones Arthritis of knee Snores Elevated cholesterol Supraumbilical hernia Depression Morbid obesity with BMI of 50.0-59.9, adult Morbid obesity Surgical History History of cystoscopy History of lithotripsy History of umbilical hernia repair Family History Mother Cancer of kidney Mother No problems noted. Father No problems noted. Social History Housing: House Patient Tobacco Use Status: Former Tobacco user e-Cigarette/Vaping Use: Former Use service: No Current occupational status: retired Cognitive needs: No Hearing needs: No Vision needs: Yes (rx glasses) Questionnaire PHQ-9 Over the last 2 weeks, how often have you been bothered by any of the following problems? 1. Little interest or pleasure in doing things: not at all 2. Feeling down, depressed, or hopeless: not at all 3. Trouble falling or staying asleep, or sleeping too much: not at all 4. Feeling tired or having little energy: not at all 5. Poor appetite or overeating: not at all 6. Feeling bad about yourself - or that you are a failure or have let yourself or your family down: not at all 7. Trouble concentrating on things, such as reading the newspaper or watching television: not at all 8. Moving or speaking so slowly that other people could have noticed. Or the opposite - being so fidgety or restless that you have been moving around a lot more than usual: not at all 9. Thoughts that you would be better off or of hurting yourself in some way: not at all Total score: 0 Depression Screening Interpretation: Negative Depression Screening Done: Yes Source: Developed by Drs. Greg Deng, Yue Boyd, Waldo Nieves and colleagues, with an educational araseli from [employer]. Thrive Questionnaire Date Thrive assessed: 09/07/24 I am a: Patient What is your living situation today?: I have a steady place to live Within the past 12 months, did the food you bought not last and you didn't have the money to get more?: Never true Within the past 12 months, did you worry whether your food would run out before you got money to buy more?: Never true Do you have trouble paying for medicines?: No Do you have trouble getting transportation to medical appointments?: No Do you have trouble paying your heating and electricity bill?: No Do you have trouble taking care of your child, family member or friend?: No Do you have trouble with day-to-day activities such as bathing, preparing meals, shopping, managing finances, etc.?: No Are you currently unemployed and looking for a job?: No Are you interested in more education?: No THRIVE Score: 0 AUDIT C Alcohol Use Questionnaire (AUDIT-C) 1. How often do you have a drink containing alcohol?: Never 2. How many drinks containing alcohol do you have on a typical day when you are drinking?: 3 or 4 3. How often do you have six or more drinks on one occasion?: Never Total Score: 1 Score Reviewed/Action Taken: Yes ALISSA-7 AMB Questionnaire ALISSA-7 Date ALISSA - 7 assessed: 02/04/25 Feeling nervous, anxious, or on edge: 0 = Not at all Not being able to stop or control worryin = Not at all Worrying too much about different things: 0 = Not at all Trouble relaxin = Not at all Being so restless that it is hard to sit still: 0 = Not at all Becoming easily annoyed or irritable: 0 = Not at all Feeling afraid as if something awful might happen: 0 = Not at all Total ALISSA-7 score (0-4 normal; 5-9 mild; 10-14 moderate; 15-21 severe): 0 Source: Developed by Drs. Greg Deng, Yue Boyd, Waldo Nieves and colleagues, with an educational araseli from [employer]. ALISSA-7 Assessment Billing ALISSA-7 Assessment Tool: ALISSA-7 Assessment 41808 Review of Systems Narrative - Constitutional: Reports fatigue, low energy, and feeling slow. - Psychiatric: Reports depressed mood with amotivation. - Reports nightmares. - Cardiovascular: Denies chest pain. - Respiratory: Denies shortness of breath. - Gastrointestinal: Reports normal bowel movements. - Denies nausea and vomiting. - Genitourinary: Reports polyuria, which he attributes to high fluid intake. - Neurological: Denies headaches. - Musculoskeletal: Reports arthritis in his knees. All systems reviewed & are unremarkable except as reviewed in HPI and above Physical exam (Primary Care) Vital Signs: Last Vital Signs Temp 97.9 F 02/04/25 08:59 Pulse 77 02/04/25 08:59 Resp 20 02/04/25 08:59 BP 120/74 02/04/25 08:59 Pulse Ox 96 02/04/25 08:59 Oxygen Delivery Method Room Air 02/04/25 08:59 BMI result Body Mass Index 58.6 Tobacco/Smoking Status: Tobacco use Status Tobacco use date assessed 09/07/24 02/04/25 07:53 Patient Tobacco Use Status Former Tobacco user 02/04/25 07:53 e-Cigarette/Vaping Use Former Use 02/04/25 07:53 PHQ-9: PHQ-9 Score PHQ-9: Total score 0 02/04/25 09:08 Depression Screening Interpretation: Negative Thrive Assessment: Date of Thrive Assessment Date Thrive assessed 09/07/24 02/04/25 07:53 Narrative General: +Alert and oriented, Well nourished, No acute distress. Eye: Pupils are equal, round and reactive to light, Intact accommodation, Extraocular movements are intact, Normal conjunctiva, Vision unchanged. HENT: Normocephalic, Atraumatic, Tympanic membranes are clear, Normal hearing, Oral mucosa is moist, No pharyngeal erythema, Ear canals patent. Respiratory: Lungs CTA bilaterally, No wheeze, Respirations are non-labored. Cardiovascular: Regular rate, Regular rhythm, S1 auscultated, S2 auscultated, No murmur, Good pulses equal in all extremities, Normal peripheral perfusion, No edema. Gastrointestinal: Soft, Non-tender, Non-distended, Normal bowel sounds, No organomegaly. Musculoskeletal: Normal range of motion, Normal strength, No tenderness, No swelling, No deformity, Normal gait. Integumentary: Warm, Dry, [place], Intact. Neurologic: Alert, Oriented, Normal sensory, Normal motor function, No focal defects, Cranial Nerves II-XII are grossly intact, Normal deep tendon reflexes. Psychiatric: Cooperative, Appropriate mood & affect, Normal judgment. Coding Level of Care Code Est Pt Level 4 (47909) Complex EM visit Add On G2211 Diagnoses Hypothyroidism E03.9 Other hyperlipidemia E78.49 Hyperlipidemia type: other hyperlipidemia Morbid obesity with BMI of 50.0-59.9, adult E66.01; Z68.43 Recurrent major depressive disorder, in partial remission F33.41 Depression Type: major depressive disorder Major depression recurrence: recurrent Active/Remission status: in partial remission STACY (obstructive sleep apnea) G47.33 Hypertension, unspecified type I10 Hypertension type: unspecified Additional Codes ALISSA-7 Assessment Billing - ALISSA-7 Assessment Tool: ALISSA-7 Assessment 01286 ([id number]) Assessment & Plan Assessment & Plan (1) Hypothyroidism: Comment: - The patient has borderline low thyroid function and reports associated symptoms such as low energy and mood. - The plan is to start a low dose of levothyroxine 25 mcg. - We will assess his symptomatic response at a 4-week follow-up and recheck thyroid labs in 3 months. Code(s): E03.9 - Hypothyroidism, unspecified Category: Medical (2) HLD (hyperlipidemia): Comment: - The patient's LDL has risen to 100 mg/dL. - Given his hypertension, his cardiovascular risk is estimated at 10-11%. - The plan is to discontinue simvastatin 10 mg and initiate atorvastatin 20 mg at night to better manage his cholesterol. Code(s): E78.5 - Hyperlipidemia, unspecified Category: Medical Qualifiers: Hyperlipidemia type: other hyperlipidemia Qualified Code(s): E78.49 - Other hyperlipidemia (3) Morbid obesity with BMI of 50.0-59.9, adult: Comment: - The patient's current weight is 379 lbs, (BMI of over 50) - We discussed initiating Zepbound, a once-weekly injection, for weight management. - He also has underlying depression as a result of which will have to avoid phentermaine given mood swings associated with medication - The starting dose will be 2.5 mg for four weeks, with a plan to titrate up to 5 mg. Code(s): E66.01 - Morbid (severe) obesity due to excess calories; Z68.43 - Body mass index [BMI] 50.0-59.9, adult Category: Medical (4) Depression: Comment: - The patient continues to experience symptoms of depression and is managed on sertraline, trazodone, and prazosin. - He is engaged in therapy. - The plan is to continue current psychiatric medications, as the new treatments for hypothyroidism and obesity may also improve his mood. Code(s): F32.A - Depression, unspecified Category: Medical Qualifiers: Depression Type: major depressive disorder Major depression recurrence: recurrent Active/Remission status: in partial remission Qualified Code(s): F33.41 - Major depressive disorder, recurrent, in partial remission (5) STACY (obstructive sleep apnea): Comment: - he is compliant with CPAP for sleep apnea. Code(s): G47.33 - Obstructive sleep apnea (adult) (pediatric) Category: Medical (6) HTN (hypertension): Comment: - Blood Pressures well controlled on Losartan at 120/74 in clinic today - Continue same medication Code(s): I10 - Essential (primary) hypertension Category: Medical Qualifiers: Hypertension type: unspecified Qualified Code(s): I10 - Essential (primary) hypertension Plan: Health Maintenance: - The patient was counseled on his estimated 10-11% 10-year risk of a cardiovascular event, and medication adjustments were made for risk reduction. - He was encouraged to continue his exercise routine of walking 4-5 times a week. - The importance of continued adherence to CPAP therapy for obstructive sleep apnea was emphasized. - A new medication, Zepbound, was discussed and offered for weight management. - A hemoglobin A1c test will be ordered to screen for diabetes. - Follow-up is scheduled in 4 weeks to monitor medication response and tolerance. - Follow-up labs, including A1c and thyroid panel, are scheduled in 3 months. Patient was informed and verbally consented to the use of an ambient scribe for clinic note documentation during this visit. Plan I explained to the patient that his recent blood work showed an increase in his cholesterol levels, with his bad cholesterol (LDL) now at 100 mg/dL. I noted that this, combined with his high blood pressure, elevates his 10-year risk of a cardiovascular event to about 10-11%. To lower this risk, I recommended switching his current cholesterol medication, simvastatin 10 mg, to atorvastatin 20 mg. I also discussed that his thyroid function is borderline low, which could be contributing to his reported low energy and mood. We will start a low dose of levothyroxine to see if his symptoms improve, and we will re-evaluate with blood work in three months. For weight management, given his diagnosis of sleep apnea, I offered a trial of Zepbound, a once-weekly self-administered injection. I addressed his ethical concerns by explaining that the medication is specifically approved for weight loss and sleep apnea, not just diabetes. I advised him to check with his therapist before starting it. We agreed to a follow-up visit in four weeks to monitor his progress and response to these new medications. Orders: Orders TSH reflex Free T4 3 Months E03.9 - Hypothyroidism, unspecified Hemoglobin A1c 3 Months Z13.1 - Encounter for screening for diabetes mellitus Medications: New atorvastatin (Lipitor) 20 mg PO BEDTIME 90 tabs 3RF 90 days tirzepatide (weight loss) (Zepbound) for 4 weeks 2.5 mg (0.5 mL) subcut QWEEK 2 mL 0RF 4 weeks E66.01 - Morbid (severe) obesity due to excess calories, G47.33 - Obstructive sleep apnea (adult) (pediatric), Z68.43 - Body mass index [BMI] 50.0-59.9, adult tirzepatide (weight loss) (Zepbound) 5 mg (0.5 mL) subcut QWEEK 2 mL 0RF 4 weeks E66.01 - Morbid (severe) obesity due to excess calories, G47.33 - Obstructive sleep apnea (adult) (pediatric), Z68.43 - Body mass index [BMI] 50.0-59.9, adult levothyroxine 25 mcg PO DAILY 30 caps 0RF Discontinued simvastatin Discontinued Reason: Doctor's Order 10 mg PO DAILY 90 tabs 3RF Patient Instructions: - You will stop taking your simvastatin 10 mg. - Start taking atorvastatin 20 mg once a day at night for your cholesterol. - Start taking levothyroxine 25 mcg once a day for your thyroid function. - Please contact your therapist to ask if they are okay with you starting a new weight loss medication called Zepbound. - If your therapist approves, you can start the Zepbound injections. - You will inject 2.5 mg once a week for 4 weeks, and then increase the dose to 5 mg once a week. - Continue taking all your other current medications as prescribed. - Continue your walking routine and use your CPAP machine every night. - We will see you back in the office for a follow-up visit in 4 weeks. - You will need to get blood work done in 3 months. No blood work is needed before your next 4-week visit.
[2025-02-04 08:59] VITALS: BP 120/74; PULSE 77; RESP 20; TEMP 36.6; O2SAT 96; BMI 58.6
--- OUTSIDE RECORDS SUMMARY | 2025-02-04 09:54 | XMS_ITS | Patient Health Record ---
Author Organization [facility] Address [address] [place] [address] Care Team Providers Care Scientific Systems Analyst Name Role Phone Hussein (RETIRED) Jimenez MORALEZ Primary Care Provide Ethan Tolliver Jr Unavailable [phone] Allergies Allergen (clinical drug ingredient) Drug/Non Drug Allergy documented on EMR Reaction Allergy Type Onset Date Status environmental (uncoded) Unknown Allergy Active Reason For Referral No Information Medications Medication SIG (Take, Route, Frequency, Duration) Notes Start Date End Date Status traZODone HCl 100 MG 1 tablet at bedtime Orally Once a day; Duration: 30 day(s) as needed Active ZyrTEC Active MiraLax (colon prep) 17 GM/SCOOP mixed with Gatorade or Crystal Light Orally begin at 5:00 p.m. the day before the procedure; Duration: 1 day 09/25/2021 Active Zoloft 100 MG 1 tablet Orally Once a day; Duration: 30 day(s) 09/25/2021 Active Immunizations Vaccine Route [...] Problem Status W/U Status Risk Notes Problem Colon cancer screening (936918425) Colon cancer screening (Z12.11) Active confirmed Problem Pre-procedure evaluation check (175123555) Encounter for other preprocedural examination (Z01.818) Active confirmed Plan Of Treatment Future Test Test Name Order Date COLONOSCOPY 09/25/2021 Insurance Providers Payer Name Payer Address Payer Phone Subscriber Number Group Number Insured Name Patient Relationship to Insured Coverage Start Date Coverage End Date [facility] [address] [address] [place], [place] [id number] GIAN RIVAS Self - patient is the insured Medical (General) History Medical History History ICD Code Nephrolithiasis Seasonal allergic rhinitis Elevated cholesterol PTSD Elevated BMI Surgical History Surgery Date(Month/Year) Multiple cystoscopies/ESWLs Umbilical hernia repair 2006
== END 2025-02-04 09:22 | disposition home or self-care (01) ==
PROVIDERS: PCP Student in an Organized Health Care Education/Training Program; Visit Provider Student in an Organized Health Care Education/Training Program
DX: E03.9 Hypothyroidism, unspecified (principal); E78.49 Other hyperlipidemia; E66.01 Morbid (severe) obesity due to excess calories; Z68.43 Body mass index [BMI] 50.0-59.9, adult; F33.41 Major depressive disorder, recurrent, in partial remission; G47.33 Obstructive sleep apnea (adult) (pediatric); I10 Essential (primary) hypertension

== ENCOUNTER → 2025-02-04 08:54 | Outpatient (BNVA) | payer OTHER, SELFPAY | PROVIDERS: PCP Internal Medicine; Visit Provider Student in an Organized Health Care Education/Training Program | DX: E03.9 Hypothyroidism, unspecified (principal); E78.49 Other hyperlipidemia; E66.01 Morbid (severe) obesity due to excess calories; Z68.43 Body mass index [BMI] 50.0-59.9, adult; F33.41 Major depressive disorder, recurrent, in partial remission; G47.33 Obstructive sleep apnea (adult) (pediatric); I10 Essential (primary) hypertension; Z87.442 Personal history of urinary calculi; Z79.899 Other long term (current) drug therapy; Z99.89 Dependence on other enabling machines and devices; Z13.31 Encounter for screening for depression; Z13.39 Encounter for screening examination for other mental health and behavioral disorders | CPT/HCPCS: 96127; 99212 ==

== ENCOUNTER 2025-02-15 07:48 | Outpatient (REF) | payer OTHER, SELFPAY ==
--- NOTE | ~2025-02-15 | US_ITS ---
CLINICAL HISTORY: N20.0 - Calculus of kidney US of kidneys Comparison: US - US RENAL BI - 08/19/24 10:31 EDT Findings: Right kidney is normal in size, echogenicity and morphology, 12.6 cm in length. No calculus, mass or hydronephrosis. No abnormal vascular flow. Left kidney is not well visualized due to body habitus/limited acoustic window, top-normal in size, 13.2 cm in length. Grossly normal in echogenicity, no obvious mass. No hydronephrosis or abnormal vascular flow. 5 mm calculus in the upper pole. Impression: Left renal calculus 5 mm. This document has been electronically signed by: Leola Madden MD on 02/16/2025 10:02:34
--- OUTSIDE RECORDS SUMMARY | 2025-02-15 07:50 | XMS_ITS | Patient Health Record ---
Author Organization [facility] Address [address] [place] [address] Care Team Providers Care Civil Engineering Director Name Role Phone Hussein (RETIRED) Jimenez MORALEZ Primary Care Provide Ethan Tolliver Jr Unavailable [phone] Allergies Allergen (clinical drug ingredient) Drug/Non Drug [...] Status Risk Notes Problem Colon cancer screening (218736622) Colon cancer screening (Z12.11) Active confirmed Problem Pre-procedure evaluation check (263306835) Encounter for other preprocedural examination (Z01.818) Active confirmed Plan Of Treatment Future Test Test Name Order Date COLONOSCOPY 09/25/2021 Insurance Providers Payer Name Payer Address Payer Phone Subscriber Number Group Number Insured Name Patient Relationship to Insured Coverage Start Date Coverage End Date [facility] [address] [address] [place], [place] [id number] GIAN RIVAS Self - patient is the insured Medical (General) History Medical History History ICD Code Nephrolithiasis Seasonal allergic rhinitis Elevated cholesterol PTSD Elevated BMI Surgical History Surgery Date(Month/Year) Multiple cystoscopies/ESWLs Umbilical hernia repair 2006
== END 2025-02-15 07:49 | disposition home or self-care (01) ==
LOC: HO.US 07:48
PROVIDERS: PCP Internal Medicine; Visit Provider Nurse Practitioner Family
DX: N20.0 Calculus of kidney (principal)
CPT/HCPCS: 76775

== ENCOUNTER → 2025-02-15 07:49 | Outpatient (BNV) | payer OTHER, SELFPAY | PROVIDERS: PCP Internal Medicine; Visit Provider Radiology Diagnostic Radiology | DX: N20.0 Calculus of kidney (principal) | CPT/HCPCS: 76775 ==

== ENCOUNTER 2025-03-11 10:31 | Outpatient (REF) | payer OTHER, SELFPAY ==
[2025-03-11 12:37] LABS: Prostate Specific Antigen 3.58 ng/mL (<0.05-4.0)
== END 2025-03-11 10:32 | disposition home or self-care (01) ==
LOC: HO.LAB 10:31
PROVIDERS: Nurse Practitioner Family; PCP Student in an Organized Health Care Education/Training Program; Visit Provider Student in an Organized Health Care Education/Training Program
DX: N40.0 Benign prostatic hyperplasia without lower urinary tract symptoms (principal)
CPT/HCPCS: 36415; 84153

== ENCOUNTER 2025-03-18 10:41 | Outpatient (AMB) | payer OTHER, SELFPAY ==
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
[2025-03-18 11:05] VITALS: BP 112/54; PULSE 88; RESP 20; TEMP 37; O2SAT 95; BMI 59.4
== END 2025-03-18 11:26 | disposition home or self-care (01) ==
LOC: HO.HMCHD 10:42
PROVIDERS: PCP Student in an Organized Health Care Education/Training Program; Visit Provider Student in an Organized Health Care Education/Training Program
DX: E03.9 Hypothyroidism, unspecified (principal); E66.01 Morbid (severe) obesity due to excess calories; Z68.43 Body mass index [BMI] 50.0-59.9, adult; F33.41 Major depressive disorder, recurrent, in partial remission; I10 Essential (primary) hypertension; E78.49 Other hyperlipidemia; G47.33 Obstructive sleep apnea (adult) (pediatric)

== ENCOUNTER → 2025-03-18 10:41 | Outpatient (BNVA) | payer OTHER, SELFPAY | PROVIDERS: PCP Student in an Organized Health Care Education/Training Program; Visit Provider Student in an Organized Health Care Education/Training Program | DX: E03.9 Hypothyroidism, unspecified (principal); E66.01 Morbid (severe) obesity due to excess calories; Z68.43 Body mass index [BMI] 50.0-59.9, adult; F33.41 Major depressive disorder, recurrent, in partial remission; F43.10 Post-traumatic stress disorder, unspecified; I10 Essential (primary) hypertension; E78.49 Other hyperlipidemia; G47.33 Obstructive sleep apnea (adult) (pediatric); Z79.899 Other long term (current) drug therapy; Z99.89 Dependence on other enabling machines and devices | CPT/HCPCS: 99212 ==

== ENCOUNTER 2025-03-22 14:20 | Outpatient (AMB) | payer OTHER, SELFPAY ==
--- NOTE | 2025-03-22 14:53 | A.OFFVIS_ITS ---
Vital Signs 03/22/25 14:54 Height 5 ft 7 in Weight 376 lb 15.847 oz BMI 59.0 BP 130/70 Blood Pressure Location Lt brachial Position Sitting Pulse 78 Pulse Source Pulse Oximeter Pulse Oximetry (%) 97 Oxygen Delivery Method Room Air Intake Visit Reasons: Obstructive sleep apnea Intake Note: pt is here for follow up and states he is feeling not too bad today, cpap is going well. Equipment Superintendent Required: No Rn Utilization Management Um: Rn Utilization Management Um offered & declined Allergies No Known Allergies (No Known Allergies*) Allergy (Verified 03/22/25 14:56) Medication List - Last Reconciled 03/22/25 by Elpidio Verma MD atorvastatin (Lipitor) 20 mg PO BEDTIME 90 days levothyroxine (Synthroid) 25 mcg PO DAILY loratadine 10 mg PO DAILY losartan 25 mg PO DAILY prazosin Take 1 to 3 pills daily pyridoxine (vitamin B6) 50 mg PO DAILY 90 days sertraline 150 mg PO DAILY trazodone 75 - 100 mg (1.5 - 2 x 50 mg) PO BEDTIME Do you need a note to return to daycare/school/sports/work: No HPI HPI Obstructive sleep apnea: Details: Greg is 59 years old gentleman a case of super morbid obesity, current BMI 59 , He has severe obstructive sleep apnea which is being treated with BiPAP, . He uses the BiPAP every night and sleeps well for at least 6 hours per night. Without the BiPAP he would not be able to sleep at all. Is weight is holding stable he is not able to lose weight , and is waiting to join the weight management program. He is not able to do much walking or any exercises. [facility] Medical History Hypothyroidism HLD (hyperlipidemia) HTN (hypertension) Periodic limb movements of sleep Nocturnal hypoxemia STACY (obstructive sleep apnea) STACY (obstructive sleep apnea) PTSD (post-traumatic stress disorder) Seasonal allergic rhinitis History of kidney stones Arthritis of knee Snores Elevated cholesterol Supraumbilical hernia Depression Morbid obesity with BMI of 50.0-59.9, adult Morbid obesity Surgical History History of cystoscopy History of lithotripsy History of umbilical hernia repair Family History Mother Cancer of kidney Mother No problems noted. Father No problems noted. Social History Housing: House Patient Tobacco Use Status: Former Tobacco user e-Cigarette/Vaping Use: Former Use service: No Current occupational status: retired Cognitive needs: No Hearing needs: No Vision needs: Yes (rx glasses) Review of Systems Const All systems reviewed & are unremarkable except as noted in HPI and below Eyes Reports no additional complaints ENT Reports nasal congestion (Mild intermittent) Card Denies chest pain, Denies irregular heart rhythm, Denies leg edema and Reports dyspnea Resp Reports cough, Reports dyspnea and Reports wheezing GI Reports no additional complaints Reports no additional complaints Musc Reports no additional complaints Skin/Breast Reports system reviewed and no additional complaints, except as documented Neuro Reports no additional complaints Psych Reports no additional complaints Endo Reports no additional complaints Patrice/Lymph Reports no additional complaints Aller/Immun Reports no additional complaints and Reports wheezing Physical Exam Vital Signs: Last Vital Signs Pulse 78 03/22/25 14:54 BP 130/70 03/22/25 14:54 Pulse Ox 97 03/22/25 14:54 Oxygen Delivery Method Room Air 03/22/25 14:54 BMI result Body Mass Index 59.0 Const Other: Super obese, BMI 58 General: comfortable, no acute distress, alert and awake Orientation/consciousness: patient oriented x3 HEENT Head: Yes normal to inspection General nose exam: No nasal polyps present and No nasal discharge present Face and sinus: Yes sinuses nontender Mouth: oropharynx normal Throat: No posterior oropharynx normal (Narrow and crowded, Mallampati scale 4) Eyes General: appearance normal, both eyes and all related structures Neck Other: Large and with a lose skin apron. NECK CIRCUMFERENCE 21 IN. Neck: Yes normal visual inspection, Yes no lymphadenopathy, Yes trachea midline and Yes no JVD Thyroid: Thyroid normal Chest Chest palpation & inspection: normal inspection of the chest, normal palpation of entire chest wall and no tenderness Resp Other: PERCUSSION NOTE NOT PERCEPTIBLE BECAUSE OF OBESITY. BREATH SOUNDS ARE DISTANT ESPECIALLY OVER THE BASILAR AREAS. NO WHEEZES RHONCHI OR CREPITATIONS ARE HEARD. Cardio Palpation: normal PMI Rate: regular rate Rhythm: regular rhythm Heart sounds: no gallops and no murmurs GI Palpation (GI): Soft to palpation, Tenderness to palpation present (GI), No hepatosplenomegaly present, Palpable mass present and Other GI palpation findings present (Abdomen is extremely obese and pendulous, a large firm mass in supra umbili) Auscultation: normal bowel sounds Back/Spine/Pelvis Thoracic/Lumbar Spine: thoracic and lumbar spine normal to inspection and thoraco-lumbar ROM limited Skin General skin exam: no rashes or lesions noted Neuro General: patient oriented x3 and no focal motor deficits Cranial nerves: Yes CN's II-XII intact bilaterally Extrem General: Yes normal to inspection, Yes no calf tenderness and Yes venous stasis dermatitis (1 +) Psych Appearance: grossly normal and well kempt Speech and movement: Normal speech and movement present Results Reviewed Results Reviewed: Compliance not available as his machine did not transmit the information. But looking at the screen of his CPAP device he is using regularly. At least for 6 hours every night. Assessment & Plan Assessment & Plan (1) Morbid obesity with BMI of 50.0-59.9, adult: Comment: - The patient acknowledges poor eating habits. - A referral has been placed to the [facility] to provide a structured system and potentially consider medications like phentermine to assist with weight loss. - The patient is agreeable to this plan. Code(s): E66.01 - Morbid (severe) obesity due to excess calories; Z68.43 - Body mass index [BMI] 50.0-59.9, adult Category: Medical Plan: I stressed that he needs to join a weight management program. And he should continue to follow-up with his primary care physician regularly. (2) STACY (obstructive sleep apnea): Comment: -He does have severe obstructive sleep apnea, requiring BiPAP 20/16 cm. He is very compliant in using it every night.. Code(s): G47.33 - Obstructive sleep apnea (adult) (pediatric) Category: Medical Plan: We are going to contact DME, asked them to send a printed report about his compliance. Advised the patient to use BiPAP every night at least for 7-8 hours per night. (3) Nocturnal hypoxemia: Comment: NOCTURNAL HYPOXEMIA RELATED TO HIS OBSTRUCTIVE, SLEEP APNEA AND NOW THAT HE IS USING IT REGULARLY IT SHOULD BE TAKEN CARE OF. Code(s): G47.34 - Idiopathic sleep related nonobstructive alveolar hypoventilation Category: Medical Plan: At some point we will have to do overnight oximetry recording to make sure that hypoxemia is corrected (4) Periodic limb movements of sleep: Comment: VERY FREQUENT LIMB MOVEMENTS WERE NOTED DURING THE CPAP TITRATION PROCESS. HE DENIES ANY PAIN OR DISCOMFORT AT NIGHT, PLMD s could be secondary to use of sertraline ( SSRI ) but it is not symptomatic. Code(s): G47.61 - Periodic limb movement disorder Category: Medical Plan: Patient advised to let us know if he starts having any leg cramps or restless legs at night Coding Level of Care Code Est Pt Level 3 (39041) Diagnoses Morbid obesity with BMI of 50.0-59.9, adult E66.01; Z68.43 STACY (obstructive sleep apnea) G47.33 Nocturnal hypoxemia G47.34 Periodic limb movements of sleep G47.61
[2025-03-22 14:54] VITALS: BP 130/70; PULSE 78; O2SAT 97; BMI 59.0
--- OUTSIDE RECORDS SUMMARY | 2025-03-22 20:44 | XMS_ITS | Patient Health Record ---
Author Organization [facility] Address [address] [place] [address] Care Team Providers Care Street Cleaning Equipment Operator Name Role Phone Hussein (RETIRED) Jimenez MORALEZ Primary Care Provide Ethan Tolliver Jr Unavailable Allergies Allergen (clinical drug ingredient) Drug/Non Drug Allergy documented on EMR Reaction Allergy Type Onset Date Status environmental (uncoded) Unknown Allergy Active Reason For Referral No Information Medications Medication SIG (Take, Route, Frequency, Duration) Notes Start Date End Date Status traZODone HCl 100 MG Tablet 1 tablet at bedtime Orally Once a day; Duration: 30 day(s) as needed Active ZyrTEC Active MiraLax (colon prep) 17 GM/SCOOP Powder mixed with Gatorade or Crystal Light Orally begin at 5:00 p.m. the day before the procedure; Duration: 1 day 09/25/2021 Active Zoloft 100 MG Tablet 1 tablet Orally Onc e a day; Duration: 30 day(s) 09/25/2021 Active Immunizations Vaccine Route Administration Date Status Comme nts Influenza Unknown 01/24/2021 Administered Social History Tobacco Use: Social History Observation Description Date Details (start date - stop date) Never Smoker NA - NA Social History Drugs/Alcohol: Social Info Question Answer Notes Alcohol Screen Did you have a drink containing alcohol in the past year? No Points 0 Interpretation Negative Tobacco Use: Social Info Question Answer Notes Tobacco Use/Smoking Patient is a nonsmoker Additional Details Category Social Info Options Details Miscellaneous: Marital status: single Occupation: unemployed Problems Problem Type SNOMED Code ICD Code Onset Dates Problem Status W/U Status Risk Notes Problem Colon cancer screening (809709071) Colon cancer screening (Z12.11) Active confirmed Problem Pre-procedure evaluation check (340032263) Encounter for other preprocedural examination (Z01.818) Active confirmed Plan Of Treatment Future Test Test Name Order Date COLONOSCOPY 09/25/2021 Insurance Providers Payer Name Payer Address Payer Phone Subscriber Number Group Number Insured Name Patient Relationship to Insured Coverage Start Date Coverage End Date [facility] [address] [address] [place], [place] [id number] GIAN RIVAS Self - patient is the insured Medical (General) History Medical History History ICD Code Nephrolithiasis Seasonal allergic rhinitis Elevated cholesterol PTSD Elevated BMI Surgical History Surgery Date(Month/Year) Multiple cystoscopies/ESWLs Umbilical hernia repair 2006
== END 2025-03-22 15:21 | disposition home or self-care (01) ==
LOC: HO.HPS 14:21
PROVIDERS: PCP Internal Medicine; Visit Provider Internal Medicine
DX: E66.01 Morbid (severe) obesity due to excess calories (principal); Z68.43 Body mass index [BMI] 50.0-59.9, adult; G47.33 Obstructive sleep apnea (adult) (pediatric); G47.34 Idiopathic sleep related nonobstructive alveolar hypoventilation; G47.61 Periodic limb movement disorder
CPT/HCPCS: 99213

== ENCOUNTER → 2025-03-22 14:20 | Outpatient (BNVA) | payer OTHER, SELFPAY | PROVIDERS: PCP Internal Medicine; Visit Provider Internal Medicine | DX: G47.33 Obstructive sleep apnea (adult) (pediatric) (principal); E66.01 Morbid (severe) obesity due to excess calories; G47.34 Idiopathic sleep related nonobstructive alveolar hypoventilation; G47.61 Periodic limb movement disorder; Z99.89 Dependence on other enabling machines and devices; Z68.43 Body mass index [BMI] 50.0-59.9, adult | CPT/HCPCS: 99212 ==